=== PATIENT | male | born 1950 | race Caucasian/White ===

== ENCOUNTER → 2017-11-02 | Outpatient (CLI) | payer OTHER ==
[~2017-11-02] MED LIST: ATOR-22 PO; CZR50 PO; HYDR25TA4 PO; MULTTAB5 PO
--- NOTE | 2017-11-02 12:20 | DIAGNOSTIC IMAGING REPORT ---
MRI OF THE RIGHT SHOULDER CLINICAL HISTORY: Right shoulder injury and pain. COMPARISON STUDY: No priors. TECHNIQUE: MRI of the right shoulder was performed utilizing various T1 and T2 weighted sequences in the axial, sagittal, coronal planes. IV contrast was not administered for this examination. Note that interpretation is suboptimal without plain film correlate. FINDINGS: Rotator cuff: There is advanced tendinopathy with full-thickness rupture of the supraspinatous tendon. The tear extends at least 2 cm in length. Some of the posterior fibers remain intact. No musculotendinous retraction is identified. There is tendinopathy with mild partial-thickness tearing of the infraspinatus tendon. There is tendinopathy with full-thickness rupture of the subscapularis tendon. The teres minor tendon is intact. There is subacromial and subdeltoid bursal fluid. Productive degenerative changes seen at the acromioclavicular joint. Biceps tendon: There is tendinopathy of the long head of the biceps tendon. There has likely been full-thickness rupture of the biceps tendon which is not located within the bicipital groove. Labrum: There is circumferential tearing/maceration of the glenoid labrum. Shoulder joint: There is a large joint effusion. There is thinning of the articular cartilage overlying the glenoid. There is no MRI evidence of fracture. Musculature and soft tissues: There is mild atrophy and edema involving the subscapularis muscle. The remaining musculature appears normal. IMPRESSION: 1. There is tendinopathy with a large full-thickness tear of the supraspinatus tendon. Some of the posterior fibers remain intact and there is no musculotendinous retraction. 2. There is full-thickness rupture and retraction of the subscapularis tendon. 3. There is tendinopathy of the long head of the biceps tendon which is likely ruptured, and is not located within the bicipital groove. 4. There is circumferential tearing/maceration of the labrum. 5. Joint effusion. 6. Additional findings as above. Electronically signed by: Jack Ryan M.D. 11/02/2017 12:18 PM Dictated Date/Time: 11/02/2017 12:12 PM
== END | disposition home or self-care (01) ==
LOC: C.MRI 10:19
PROVIDERS: ATTEND Family Medicine
DX: S46.911A Strain of unspecified muscle, fascia and tendon at shoulder and upper arm level, right arm, initial encounter (principal); X58.XXXA Exposure to other specified factors, initial encounter

== ENCOUNTER 2022-12-11 14:50 | Inpatient (IN) ==
--- NOTE | 2022-12-11 15:39 | Emergency Department Note ---
History of Present Illness General Chief complaint: Referred by Doctor Stated complaint: AFIB Time Seen by Provider: 12/11/22 15:22 Source: patient, RN notes reviewed, old records reviewed (I have reviewed the notes from the clinic visit at [facility] today) and police Mode of arrival: ambulatory Limitations: no limitations History of Present Illness This patient 72-year-old male who comes in after being sent over primary care doctor after being found in a rapid A-fib with RVR. He does not have a diagnosis of this prior he says. He was at a doctor's office today to get a skin cancer removed and he notes his blood pressure was high and I sent him to the primary who did an EKG and found rapid A-fib. The patient says it feels his heart beating fast a little bit but he is mostly just feeling tired and short of breath. He is not sure when it started but thinks it started 2 or 3 days ago at least. Denies lightheadedness or dizziness. No syncope no cardiac disease disease history he is on no blood thinners. No focal numbness or weakness he does take metoprolol 25 milligrams once a day. No headache no trauma or weakness. He does drink about 5 or 6 drinks an evening but does not have any shakiness or withdrawal and symptoms he tells me Home Medications Medication Instructions Recorded Confirmed Type aspirin 81 mg tablet,delayed 81 mg PO [facility] 04/05/19 12/11/22 History release atorvastatin 20 mg tablet 20 mg PO [facility] 04/05/19 12/11/22 History hydrochlorothiazide 25 mg tablet 25 mg PO [facility] 04/05/19 12/11/22 History losartan 50 mg tablet 50 mg PO [facility] 04/05/19 12/11/22 History metformin 500 mg tablet,extended 1,000 mg PO M 04/05/19 12/11/22 History release 24 hr [id number]-[id number] 1 tab PO [facility] 04/05/19 12/11/22 History tablet (Multivitamin 50 Plus tablet) amoxicillin 500 mg capsule 2,000 mg PO DIRECTED PRN PRIOR 12/11/22 12/11/22 History TO PROCEDURES metoprolol succinate 25 mg 25 mg PO BID 12/11/22 12/11/22 History tablet,extended release 24 hr Allergies Allergy/AdvReac Type Severity Reaction Status Date / Time No Known Allergies Allergy Verified 12/11/22 17:03 Past Med/Surg History Medical History (Updated 12/11/22 @ 17:19 by Makeda Bustillo PA-C) BPH (benign prostatic hyperplasia) Hearing deficit History of colon polyps Hyperlipidemia Hypertension T2DM (type 2 diabetes mellitus) Surgical History History of arthroscopy of right knee History of colonoscopy History of esophagogastroduodenoscopy (EGD) History of open reduction and internal fixation (ORIF) procedure right fibula fx--hardware removed History of oral surgery dental implants History of repair of right rotator cuff History of tonsillectomy History of tooth extraction Family History (Updated 12/11/22 @ 17:19 by Makeda Bustillo PA-C) Grandmother (Paternal) Family history of diabetes mellitus Father Coronary heart disease Other No family history of adverse response to anesthesia Social History (Updated 12/11/22 @ 17:18 by Makeda Bustillo PA-C) Smoking Status: Never smoker Second Hand Exposure: No; Do You Dip or Chew Tobacco: Yes; Hx Alcohol Use: Yes Alcohol type: hard liquor Hx Substance Use: No Preferred Language: Kinyarwanda Communication Ability: Effective Frame Straightener Required: No Beliefs That Will Affect Care: None Current Living Situation: Alone Current Living Situation Comment: Lives [place] Other Information That Helps Us Care for You: No Feels Safe at Home: Yes Safety Concerns: Feels Safe At This Time Assistive Devices: Glasses Review of Systems A total of 10 systems reviewed and were otherwise negative Physical Exam Vital Signs Vital Signs - 24 hr 12/11/22 15:02 12/11/22 15:48 12/11/22 15:25 Temperature 36.5 C Temperature Source Temporal Artery Scan Pulse Rate 153 H 156 H 174 H Pulse Rate from SpO2 Sensor 129 H Pulse Rhythm Regular Pulse Strength Normal Respiratory Rate 20 23 Respiratory Effort / Characteristics Non-Labored Spontaneous Respiratory Depth Normal Respiratory Pattern Regular Blood Pressure 153/104 H 139/101 H Blood Pressure Mean 120 Blood Pressure Position Sitting Pulse Oximetry 95 94 Oxygen Delivery Method Room Air Sepsis Recent Fever Within 48 Hours No Sepsis New/Unexplained Change in Mental Status N/A Sepsis Action Taken by Nursing No Action Required 12/11/22 15:25 12/11/22 15:30 12/11/22 15:30 Temperature Temperature Source Pulse Rate 156 H Pulse Rate from SpO2 Sensor 139 H Pulse Rhythm Pulse Strength Respiratory Rate 18 Respiratory Effort / Characteristics Respiratory Depth Respiratory Pattern Blood Pressure 130/110 H 139/101 H Blood Pressure Mean 116 113 Blood Pressure Position Pulse Oximetry 93 Oxygen Delivery Method Sepsis Recent Fever Within 48 Hours Sepsis New/Unexplained Change in Mental Status Sepsis Action Taken by Nursing 12/11/22 16:16 12/11/22 16:00 12/11/22 16:00 Temperature Temperature Source Pulse Rate 169 H 169 H Pulse Rate from SpO2 Sensor 112 H Pulse Rhythm Pulse Strength Respiratory Rate 20 Respiratory Effort / Characteristics Respiratory Depth Respiratory Pattern Blood Pressure 120/75 120/75 Blood Pressure Mean 90 Blood Pressure Position Pulse Oximetry 94 Oxygen Delivery Method Sepsis Recent Fever Within 48 Hours Sepsis New/Unexplained Change in Mental Status Sepsis Action Taken by Nursing 12/11/22 16:53 12/11/22 16:30 12/11/22 16:30 Temperature Temperature Source Pulse Rate 152 H 152 H Pulse Rate from SpO2 Sensor 135 H Pulse Rhythm Pulse Strength Respiratory Rate 20 Respiratory Effort / Characteristics Respiratory Depth Respiratory Pattern Blood Pressure 139/100 139/100 Blood Pressure Mean 113 Blood Pressure Position Pulse Oximetry 94 Oxygen Delivery Method Sepsis Recent Fever Within 48 Hours Sepsis New/Unexplained Change in Mental Status Sepsis Action Taken by Nursing General: Well developed well nourished older male who appears in no acute distress, breathing comfortably on room air. Normal speech HEENT: Normal cephalic atraumatic. Pupils are equal round and reactive to light. Extraocular movements are intact. Oropharynx is pink with moist mucous membranes. No swelling of the mouth lips or tongue. Neck: Supple with a midline trachea. No meningeal signs or stiffness, no JVD or bruits. No Stridor. Chest: Clear to auscultation bilaterally. No wheezes or rhonchi. No increased work of breathing. Heart: Irregularly irregular narrow complex tachycardia rate of about 170 consistent with rapid A-fib but without murmurs or gallops. Abdomen: Soft nontender, nondistended without rebound guarding or rigidity. Extremities: No cyanosis clubbing or edema. No calf tenderness or assymetry Spine/Back. Non tender to palpation. No CVA tenderness Skin: Good turgor without rashes. Neurologic exam: Cranial nerves two through 12 are intact. Motor and sensation are intact and symmetrical throughout. Course Administered Medications Diltiazem HCl 125 mg/ Dextrose 125 mls @ 5 mls/hr IV .Q24H [facility]; Protocol Stop: 01/10/23 17:29 Last Admin: 12/11/22 17:35 Dose: 5 mg/hr, 5 mls/hr Documented By: OLE Co-signed By: [id number] Discontinued Medications Diltiazem HCl (Diltiazem Hcl 5 Mg/Ml 5 Ml Vial) 20 mg IV NOW STA Stop: 12/11/22 17:21 Last Admin: 12/11/22 17:34 Dose: 20 mg Documented By: OLE Co-signed By: [id number] Sodium Chloride (Nss 1000ml) 500 mls @ 999 mls/hr IV .Q31M ONE Stop: 12/11/22 16:35 Last Infusion: 12/11/22 18:49 Dose: 0 mls/hr Documented By: Admin: 12/11/22 16:15 Dose: 999 mls/hr Documented By: [id number] Magnesium Sulfate/Dextrose (Magnesium Sulfate / D5w) 1 gm in 100 mls @ 100 mls/hr IV NOW STA Stop: 12/11/22 17:41 Last Infusion: 12/11/22 18:49 Dose: 0 mls/hr Documented By: Admin: 12/11/22 16:54 Dose: 100 mls/hr Documented By: [id number] Multivitamins 10 ml/ Thiamine HCl 100 mg/ Folic Acid 1 mg/Sodium Chloride 1,011.2 mls @ 1,011.2 mls/hr IV .Q1H ONE Stop: 12/11/22 17:47 Last Admin: 12/11/22 18:16 Dose: 1,011.2 mls/hr Documented By: [id number] Metoprolol Tartrate (Metoprolol Tartrate 1 Mg/Ml Vial) 5 mg IV NOW STA Stop: 12/11/22 15:41 Last Admin: 12/11/22 15:48 Dose: 5 mg Documented By: [id number] Metoprolol Tartrate (Metoprolol Tartrate 1 Mg/Ml Vial) 5 mg IV NOW STA Stop: 12/11/22 16:06 Last Admin: 12/11/22 16:16 Dose: 5 mg Documented By: [id number] Metoprolol Tartrate (Metoprolol Tartrate 1 Mg/Ml Vial) 5 mg IV NOW STA Stop: 12/11/22 16:49 Last Admin: 12/11/22 16:53 Dose: 5 mg Documented By: [id number] Potassium Chloride (Potassium Chloride Crtab 20 Meq Tabcr) 20 meq PO NOW STA Stop: 12/11/22 17:12 Last Admin: 12/11/22 18:16 Dose: 20 meq Documented By: [id number] Critical Care Time Critical Care Time: Yes Total Critical Care Time: 45 Due to the patient's tachycardia, need for multiple IV medicate cardiac medications, reassessment, review of chart and consultation with the hospitalist, I have personally spent greater than 45 minutes of critical care time in the direct management of this patient. This includes bedside care, interpretation of diagnostic studies, and testing, discussion with consultants, patient, and family members, and other required patient management activities. This 45 minutes is in excess of all separately billable procedures. Medical Decision Making Differential Diagnosis Rapid A-fib, electrolyte or metabolic abnormality, acute coronary syndrome, thyroid disease, PE ,infection, arrhythmia Medical Records Attestation: I reviewed the patient's medical records. Home Medications Current Medication List: was personally reviewed by me Laboratory Data Attestation: I reviewed the patient's lab results. 12/11/22 15:40 12/11/22 15:40 Lab Results 12/11/22 12/11/22 12/11/22 Range/Units 15:40 15:40 15:40 WBC 9.05 (4.8-10.8) K/ul RBC 4.73 (4.70-6.10) M/uL Hgb 15.4 (14.0-18.0) g/dl Hct 44.0 (42.0-52.0) % MCV 93.0 (80.0-100.0) fL MCH 32.6 (25.0-34.0) pg MCHC 35.0 (32.0-36.0) g/dL RDW Std Deviation 41.1 (36.4-46.3) fL RDW Coeff of Cindy 11.9 (11.5-14.5) % Plt Count 194 (130-400) K/uL MPV 10.9 (9.4-12.4) fL Immature Gran % (Auto) 0.4 % Neut % (Auto) 66.1 % Lymph % (Auto) 23.2 % Noble % (Auto) 9.5 % Eos % (Auto) 0.4 % Baso % (Auto) 0.4 % Neut # (Auto) 5.97 (1.40-6.50) K/uL Lymph # (Auto) 2.10 (1.2-3.4) K/uL Noble # (Auto) 0.86 H (0.11-0.59) K/uL Eos # (Auto) 0.04 (0-0.50) K/uL Baso # (Auto) 0.04 (0-0.2) K/uL Immature Gran # (Auto) 0.04 (0.01-0.20) K/uL PT 12.2 H (9.0-12.0) Seconds INR 1.2 H (0.9-1.1) APTT 29.9 (21.0-31.0) Seconds PTT Ratio 1.1 D-Dimer 440 (0-500) ug/L FEU Sodium 139 (136-145) mmol/L Potassium 3.9 (3.5-5.1) mmol/L Chloride 105 (98-107) mmol/L Carbon Dioxide 24 (21-32) mmol/L Anion Gap 10 (3-11) BUN 13 (6-23) mg/dl Creatinine 0.93 (0.6-1.4) mg/dl Est Cr Clr Drug Dosing 87.9 ml/min Est GFR ( Amer) 96.1 ml/min Est GFR (Non-Af Amer) 82.9 ml/min BUN/Creatinine Ratio 14.0 (10-20) Glucose 119 H (70-99(Fasting)) mg/dl Calcium 9.7 (8.5-10.1) mg/dl Magnesium 1.7 (1.7-2.4) mg/dl Total Bilirubin 1.4 H (0.2-1.0) mg/dl AST 29 (13-39) U/L ALT 31 (7-52) U/L Alkaline Phosphatase 50 (34-104) U/L Troponin I High Sens 17.9 (0-20) pg/ml Total Protein 7.1 (6.0-8.3) gm/dl Albumin 4.1 (3.4-5.0) gm/dl Globulin 3.0 (2.5-4.0) gm/dl Albumin/Globulin Ratio 1.4 (0.9-2) Lipase 30 (11-82) U/L TSH (0.300-4.500) uIu/ml SARS-CoV-2, RNA, NAAT (NEGATIVE) 12/11/22 12/11/22 Range/Units 15:40 15:40 WBC (4.8-10.8) K/ul RBC (4.70-6.10) M/uL Hgb (14.0-18.0) g/dl Hct (42.0-52.0) % MCV (80.0-100.0) fL MCH (25.0-34.0) pg MCHC (32.0-36.0) g/dL RDW Std Deviation (36.4-46.3) fL RDW Coeff of Cindy (11.5-14.5) % Plt Count (130-400) K/uL MPV (9.4-12.4) fL Immature Gran % (Auto) % Neut % (Auto) % Lymph % (Auto) % Noble % (Auto) % Eos % (Auto) % Baso % (Auto) % Neut # (Auto) (1.40-6.50) K/uL Lymph # (Auto) (1.2-3.4) K/uL Noble # (Auto) (0.11-0.59) K/uL Eos # (Auto) (0-0.50) K/uL Baso # (Auto) (0-0.2) K/uL Immature Gran # (Auto) (0.01-0.20) K/uL PT (9.0-12.0) Seconds INR (0.9-1.1) APTT (21.0-31.0) Seconds PTT Ratio D-Dimer (0-500) ug/L FEU Sodium (136-145) mmol/L Potassium (3.5-5.1) mmol/L Chloride (98-107) mmol/L Carbon Dioxide (21-32) mmol/L Anion Gap (3-11) BUN (6-23) mg/dl Creatinine (0.6-1.4) mg/dl Est Cr Clr Drug Dosing ml/min Est GFR ( Amer) ml/min Est GFR (Non-Af Amer) ml/min BUN/Creatinine Ratio (10-20) Glucose (70-99(Fasting)) mg/dl Calcium (8.5-10.1) mg/dl Magnesium (1.7-2.4) mg/dl Total Bilirubin (0.2-1.0) mg/dl AST (13-39) U/L ALT (7-52) U/L Alkaline Phosphatase (34-104) U/L Troponin I High Sens (0-20) pg/ml Total Protein (6.0-8.3) gm/dl Albumin (3.4-5.0) gm/dl Globulin (2.5-4.0) gm/dl Albumin/Globulin Ratio (0.9-2) Lipase (11-82) U/L TSH 1.813 (0.300-4.500) uIu/ml SARS-CoV-2, RNA, NAAT NEGATIVE (NEGATIVE) Imaging Data Attestation: I personally reviewed and interpreted this imaging study as follows: My Impression: Chest x-rayno acute infiltrate, failure, pneumothorax seen Radiologist's Impression: Chest X-Ray 12/11/22 15:33 XR chest 1V portable HISTORY: 72 years-old Male Chest pain, nonspecific acute chest pain COMPARISON: Chest radiograph 03/26/2015 TECHNIQUE: AP view of the chest FINDINGS: Cardiac silhouette is enlarged. Atherosclerosis of the aorta. No pneumothorax, large pleural effusion or overt pulmonary edema. Bones appear grossly intact. Mild right hemidiaphragmatic elevation. Bones appear grossly intact. IMPRESSION: No acute process. ACT 112: Negative or not required by law. The above report was generated using voice recognition software. It may contain grammatical, syntax or spelling errors. Electronically signed by: Gera Louie M.D. 12/11/2022 5:10 PM ECG Data Attestation: I personally reviewed and interpreted this ECG as follows: Indication: + palpitations and + SOB/dyspnea Rate (beats per minute): 165 Rhythm: + atrial fibrillation ECG Intervals/blocks: + Normal QRS, + Normal QT and + Normal NE ECG Earth: + Normal ECG ST segments: + Normal ST segments ECG Findings: no PACs or no PVCs Comparison ECG Date: no prior available MDM Narrative This patient comes in as described above he was placed on a carpenters helper in r oom A9. He was noted to be in rapid A-fib. Is unclear how long he has been in this as his main complaint is shortness of breath and weakness, he estimates 2 or 3 days although he says he normally feels a little short of breath when he is walking around the house. No chest pain. He does have a history of drinking alcohol heavily. IV access was established and blood work was obtained. I reviewed the records from the office. He does have a history of having a work- up for palpitations in 2020 which included an echo and ZIO which were unremarkable no previous history of A-fib. He was given metoprolol 5 mg x 15 or so minutes apart with this his heart rate was starting to trend down but was still elevated. He was also given magnesium 1 g IV as his magnesium was 1.7. He was also given a banana bag IV given his alcohol history however I do not think is acutely withdrawn. Despite the metoprolol his heart rate is still elevated. I did consult the [facility] hospitalist, and discussed patient and the case with them. They came down and saw the patient in the ED and are going to start him also on Cardizem IV and admit him for further cardiac work-up. Continuous cardiac monitoring: Orders placed in EMR for continuous cardiac monitoring. Upon my interpretation, the patient was noted to be in rapid A-fib with a rate of 170 Impression & Plan Atrial fibrillation with RVR, SOB (shortness of breath), Alcohol abuse, Lab te st negative for COVID-19 virus Discharge Plan Visit Data Chief Complaint: Referred by Doctor Stated Complaint: AFIB ED Provider: Romeo Kimble Discharge Problem: Atrial fibrillation with RVR, SOB (shortness of breath), Alcohol abuse, Lab test negative for COVID-19 virus Patient Disposition: Admitted As Inpatient Discharge Instructions Interventions: ED Discharge Assessment Last Done: 12/11/22 18:46
[2022-12-11] MEDS ORDERED: METOPROLOL TARTRATE 1 MG/ML VIAL IV STA ×3 (15:40→16:48)
[2022-12-11 15:59] LABS: Basophils # (auto) 0.04 K/uL (0-0.2); Basophils % (auto) 0.4 %; Eosinophils # (auto) 0.04 K/uL (0-0.50); Eosinophils % (auto) 0.4 %; Hemoglobin 15.4 g/dl (14.0-18.0); Immature Granulocytes # (auto) 0.04 K/uL (0.01-0.20); Immature Granulocytes % (auto) 0.4 %; Lymphocytes % (auto) 23.2 %; Mean Corpuscular Hemoglobin 32.6 pg (25.0-34.0); Mean Platelet Volume 10.9 fL (9.4-12.4); Monocytes # (auto) 0.86 K/uL (0.11-0.59); Monocytes % (auto) 9.5 %; Neutrophils # (auto) 5.97 K/uL (1.40-6.50); Neutrophils % (auto) 66.1 %; Platelet Count 194 K/uL (130-400); RDW Coefficient of Variation 11.9 % (11.5-14.5); RDW Standard Deviation 41.1 fL (36.4-46.3); Red Blood Count 4.73 M/uL (4.70-6.10); White Blood Count 9.05 K/ul (4.8-10.8)
[2022-12-11] MEDS ORDERED: SODIUM CHLORIDE 0.9% 1000ML 500 ML IV ONE (16:05)
[2022-12-11 16:10] LABS: D Dimer 440 ug/L FEU (0-500); INR 1.2 (0.9-1.1); Partial Thromboplastin Ratio 1.1; Partial Thromboplastin Time 29.9 Seconds (21.0-31.0); Prothrombin Time 12.2 Seconds (9.0-12.0)
[2022-12-11 16:20] LABS: Albumin Globulin Ratio 1.4 (0.9-2); Albumin Level 4.1 gm/dl (3.4-5.0); Bilirubin,Total 1.4 mg/dl (0.2-1.0); Calcium 9.7 mg/dl (8.5-10.1); Creatinine Clr Calc Pharmacy 87.9 ml/min; Est GFR (African American) 96.1 ml/min; Est GFR (Non-African American) 82.9 ml/min; Magnesium 1.7 mg/dl (1.7-2.4); Potassium 3.9 mmol/L (3.5-5.1); Total Protein 7.1 gm/dl (6.0-8.3)
--- NOTE | 2022-12-11 16:24 | Electrocardiogram Report ---
Test Reason : Blood Pressure : / mmHG Vent. Rate : 165 BPM Atrial Rate : 340 BPM P-R Int : 000 ms QRS Dur : 076 ms QT Int : 274 ms P-R-T Axes : 000 -13 038 degrees QTc Int : 453 ms Atrial fibrillation with rapid ventricular response Abnormal ECG No previous ECGs available Confirmed by Keven Welch ([id number]) on 12/11/2022 4:24:14 PM Referred By: REFERRED SELF Confirmed By:Keven Welch
[2022-12-11 16:25] LABS: Troponin I High Sensitivity 17.9 pg/ml (0-20)
[2022-12-11] MEDS ORDERED: MAGNESIUM SULFATE / D5W 1 GM/100 ML BAG IV STA (16:42)
[2022-12-11] MEDS ORDERED: MULTI-VITAMIN INFUSION 10 ML, THIAMINE HCL 100 MG, FOLIC ACID 1 MG in SODIUM CHLORIDE 0... IV ONE (16:48)
[2022-12-11] MEDS ORDERED: POTASSIUM CHLORIDE CRTAB 20 MEQ TABCR PO STA (17:11)
[2022-12-11] MEDS ORDERED: STAT IV Infusion **Titration per Protocol STA (17:13)
--- NOTE | 2022-12-11 17:13 | History & Physical Report ---
Date of Service December 11, 2022 Assessment & Plan (1) Atrial fibrillation with RVR: (2) SOB (shortness of breath): (3) Hypertension: (4) T2DM (type 2 diabetes mellitus): (5) Hypercholesteremia: (6) Alcohol abuse: Plan This is a 72 yr old M who has significant PMH of HTN, HLD, Sinus tachy, T2DM, alcohol abuse who presents to ED at referral of PCP due to afib with RVR and SOB. Pt complains of feeling SOB for last 2-3 days. SOB New onset Afib with RVR pt received 3 - 5mg IV lopressor in ED w/o improvement will start Diltiazem bolus and gtt Lovenox 1mg/kg bid for anticoagulation- [id number] 3 (age, HTN, T2DM) replace mag - done in ED give 20meq KCL to achieve K of 4.0 TSH WNL pt reports heavy ETOH use w/ 6 whiskey drinks/day; also 3 caffeinated beverages daily Hx of Sinus tachycardia zio monitor in 2020 revealed sinus tachy and 6 brief episodes of svt hold metoprolol for now while on dilt gtt HTN BP stable continue HCTZ and losartan HLD continue statin T2DM a1c 11/2022 6.1 hold metformin correction novlog as needed Alcohol abuse 6 whiskey drinks daily received banana bag in ED daily thiamine, folic acid prn oral ativan for w/drawl pt reports going to rehab/detox at end of month Dvt ppx: Lovenox Dispo: PCU FULL CODE PCP: Isabell Pt was seen and examined in collaboration with Dr. Cedeno, please see addendum History of Present Illness Chief Complaint: SOB x 2-3 days. Primary Care Provider: Dima Whyte MD This is a 72 yr old M who has significant PMH of HTN, HLD, Sinus tachycardia, T2DM, alcohol abuse who presents to ED at referral of PCP due to afib with RVR and SOB. He was seen in [facility] today for follow-up. His BP was noted to be high and therefore appointment was made with PCP. EKG revealed A. fib with heart rates in the 170s and he was referred to ED. Pt complains of feeling SOB for last 2-3 days. He further complains of palpitations. He states if feels similar to a couple years ago when he wore a monitor for a week. At that time it didn't show anything significant. He was placed on metoprolol for this. These symptoms mostly went away and never recurred. He denies any structural heart disease and no prior hx of PCI or stents. He takes a daily ASA, "because I was told to." He does complain of a cough that is nonproductive. He denies f/c/s, chest pain, uri sx, dizziness, lightheaded, n/v/d, abd pain, change in bowel or urinary habits. He does drink alcohol approximately 6 drinks a day. He drinks 6 whiskey drinks in the evening. He is planning to seek Detox treatment at end of month. He also has 3 cups of coffee a day. He is retired from working in the [employer] He has a positive FH of CAD with father who passed at 48 due to massive ME. Allergies Allergy/AdvReac Type Severity Reaction Status Date / Time No Known Allergies Allergy Verified 12/11/22 17:03 Home Medications Medication Instructions Recorded Confirmed Type aspirin 81 mg tablet,delayed 81 mg PO [facility] 04/05/19 12/11/22 History release atorvastatin 20 mg tablet 20 mg PO [facility] 04/05/19 12/11/22 History hydrochlorothiazide 25 mg tablet 25 mg PO [facility] 04/05/19 12/11/22 History losartan 50 mg tablet 50 mg PO [facility] 04/05/19 12/11/22 History metformin 500 mg tablet,extended 1,000 mg PO [facility] 04/05/19 12/11/22 History release 24 hr [id number] 1 tab PO [facility] 04/05/19 12/11/22 History tablet (Multivitamin 50 Plus tablet) amoxicillin 500 mg capsule 2,000 mg PO DIRECTED PRN PRIOR 12/11/22 12/11/22 History TO PROCEDURES metoprolol succinate 25 mg 25 mg PO BID 12/11/22 12/11/22 History tablet,extended release 24 hr Past Med/Surg History Medical History (Updated 12/11/22 @ 17:19 by Makeda Bustillo PA-C) BPH (benign prostatic hyperplasia) Hearing deficit History of colon polyps Hyperlipidemia Hypertension T2DM (type 2 diabetes mellitus) Surgical History History of arthroscopy of right knee History of colonoscopy History of esophagogastroduodenoscopy (EGD) History of open reduction and internal fixation (ORIF) procedure right fibula fx--hardware removed History of oral surgery dental implants History of repair of right rotator cuff History of tonsillectomy History of tooth extraction Family History (Updated 12/11/22 @ 17:19 by Makeda Bustillo PA-C) Grandmother (Paternal) Family history of diabetes mellitus Father Coronary heart disease Other No family history of adverse response to anesthesia Social History (Updated 12/11/22 @ 17:18 by Makeda Bustillo PA-C) Smoking Status: Never smoker Second Hand Exposure: No; Do You Dip or Chew Tobacco: Yes; Hx Alcohol Use: Yes Alcohol type: hard liquor Hx Substance Use: No Preferred Language: Japanese Communication Ability: Effective Library Director Required: No Beliefs That Will Affect Care: None Current Living Situation: Alone Current Living Situation Comment: Lives "[place] Other Information That Helps Us Care for You: No Feels Safe at Home: Yes Safety Concerns: Feels Safe At This Time Assistive Devices: Glasses Review of Systems Review of Systems: All systems reviewed & are unremarkable except as noted in HPI & below Physical Exam Physical Exam: Please refer to Dr. Cedeno addendum for physical exam findings Results & Data Results & Data ([facility]) Vital Signs (Past 12 Hours) Vital Signs Temp Pulse Resp BP Pulse Ox O2 Del Method 12/11/22 16:30 152 H 20 94 12/11/22 16:30 139/100 12/11/22 16:53 152 H 139/100 12/11/22 16:00 169 H 20 94 12/11/22 16:00 120/75 12/11/22 16:16 169 H 120/75 12/11/22 15:30 156 H 18 93 12/11/22 15:30 139/101 H 12/11/22 15:25 130/110 H 12/11/22 15:25 174 H 23 94 12/11/22 15:48 156 H 139/101 H 12/11/22 15:02 36.5 C 153 H 20 153/104 H 95 Room Air Diagnostic Findings Chest X-Ray 12/11/22 15:33 XR chest 1V portable HISTORY: 72 years-old Male Chest pain, nonspecific acute chest pain COMPARISON: Chest radiograph 03/26/2015 TECHNIQUE: AP view of the chest FINDINGS: Cardiac silhouette is enlarged. Atherosclerosis of the aorta. No pneumothorax, large pleural effusion or overt pulmonary edema. Bones appear grossly intact. Mild right hemidiaphragmatic elevation. Bones appear grossly intact. IMPRESSION: No acute process. ACT 112: Negative or not required by law. The above report was generated using voice recognition software. It may contain grammatical, syntax or spelling errors. Electronically signed by: Gera Louie M.D. 12/11/2022 5:10 PM Medications Administered Medication List Magnesium Sulfate/Dextrose (Magnesium Sulfate / D5w) 1 gm in 100 mls @ 100 mls/hr IV NOW STA Stop: 12/11/22 17:41 Last Admin: 12/11/22 16:54 Dose: 100 mls/hr Documented By: [id number] Discontinued Medications Sodium Chloride (Nss 1000ml) 500 mls @ 999 mls/hr IV .Q31M ONE Stop: 12/11/22 16:35 Last Admin: 12/11/22 16:15 Dose: 999 mls/hr Documented By: [id number] Metoprolol Tartrate (Metoprolol Tartrate 1 Mg/Ml Vial) 5 mg IV NOW STA Stop: 12/11/22 15:41 Last Admin: 12/11/22 15:48 Dose: 5 mg Documented By: [id number] Metoprolol Tartrate (Metoprolol Tartrate 1 Mg/Ml Vial) 5 mg IV NOW STA Stop: 12/11/22 16:06 Last Admin: 12/11/22 16:16 Dose: 5 mg Documented By: [id number] Metoprolol Tartrate (Metoprolol Tartrate 1 Mg/Ml Vial) 5 mg IV NOW STA Stop: 12/11/22 16:49 Last Admin: 12/11/22 16:53 Dose: 5 mg Documented By: [id number] ECG Rate (beats per minute): 165 Rhythm: atrial fibrillation Additional Comments: RVR, QTC 453ms COVID-19 Results Results COVID-19 Adm Lab Results: RBC 4.73 M/uL (4.70-6.10) 12/11/22 WBC 9.05 K/ul (4.8-10.8) 12/11/22 Hgb 15.4 g/dl (14.0-18.0) 12/11/22 Hct 44.0 % (42.0-52.0) 12/11/22 Plt Count 194 K/uL (130-400) 12/11/22 Neutrophils (%) (Auto) 66.1 % 12/11/22 Lymphocytes (%) (Auto) 23.2 % 12/11/22 Monocytes # (Auto) 0.86 K/uL (0.11-0.59) H 12/11/22 Eosinophils # (Auto) 0.04 K/uL (0-0.50) 12/11/22 Immature Granulocyte % (Auto) 0.4 % 12/11/22 Neutrophils # (Auto) 5.97 K/uL (1.40-6.50) 12/11/22 Lymphocytes # (Auto) 2.10 K/uL (1.2-3.4) 12/11/22 Monocytes # (Auto) 0.86 K/uL (0.11-0.59) H 12/11/22 Eosinophils # (Auto) 0.04 K/uL (0-0.50) 12/11/22 Basophils # (Auto) 0.04 K/uL (0-0.2) 12/11/22 Immature Granulocyte # (Auto) 0.04 K/uL (0.01-0.20) 3 Na 139 mmol/L (136-145) 12/11/22 K 3.9 mmol/L (3.5-5.1) 12/11/22 Cl 105 mmol/L (98-107) 12/11/22 CO2 24 mmol/L (21-32) 12/11/22 Anion Gap 10 (3-11) 12/11/22 BUN 13 mg/dl (6-23) 12/11/22 Creatinine 0.93 mg/dl (0.6-1.4) 12/11/22 BUN/Creatinine Ratio 14.0 (10-20) 12/11/22 Glucose Level 119 mg/dl (70-99(Fasting)) H 12/11/22 Ca 9.7 mg/dl (8.5-10.1) 12/11/22 Total Bilirubin 1.4 mg/dl (0.2-1.0) H 12/11/22 AST/SGOT 29 U/L (13-39) 12/11/22 ALT/SGPT 31 U/L (7-52) 12/11/22 Alkaline Phosphatase 50 U/L (34-104) 12/11/22 Total Protein 7.1 gm/dl (6.0-8.3) 12/11/22 Albumin 4.1 gm/dl (3.4-5.0) 12/11/22 Globulin 3.0 gm/dl (2.5-4.0) 12/11/22 Albumin/Globulin Ratio 1.4 (0.9-2) 12/11/22 D-Dimer 440 ug/L FEU (0-500) 12/11/22 PTT 29.9 Seconds (21.0-31.0) 12/11/22 INR 1.2 (0.9-1.1) H 12/11/22 SARS-CoV-2, RNA, NAAT NEGATIVE (NEGATIVE) 12/11/22 Chest X-Ray 12/11/22 Code Status & VTE Plan Code Status FULL CODE Supervising Physician Co-Signing Physician Notes Patient seen and examined independently. Discussed with Makeda Saxena PA-C. Patient is a 72 yo male with hx of alcohol abuse, HTN, TYpe 2 DM who presents from PCP office with new onset A.fib. Ventricular rate in ED- 150-160s; received multiple dose of metoprolol. Ventricular rate persistently elevated to 1 50-1 60s. On physical examination; Constitutional: Alert oriented x3; not in any distress. Head: Normocephalic, Atraumatic Eyes: PERRL, conjunctivae normal, anicteric sclerae ENMT: external ear and nose normal, oropharynx normal Neck: trachea midline, no thyromegaly normal visual inspection Respiratory: normal respiratory effort, lungs clear to auscultation, no wheeze, rales, rhonchi. Normal insp/exp effort, no accessory muscle use Cardiovascular: Irregular, no murmur, no edema Vessels: no JVD or carotid bruit Chest: normal inspection of chest Abdomen: normal bowel sounds, soft, nontender, no hepatosplenomegaly Musculoskeletal: no cyanosis or clubbing, extremities motor strength 5/5 Skin: no rashes, warm and dry normal turgor Neurologic: PERRL, EOMI, accommodation nl, no face palsy, no dysarthria CN's II- XI intact bilaterally and moves all extremities Psychiatric: A+Ox3, euthymic affect Lymphatic: no cervical or axillary lymphadenopathy Assessment/plan: New onset atrial fibrillation with RVR: --Patient reports symptoms of shortness of breath and palpitation for 2 days. History of hypertension, type 2 diabetes mellitus, alcohol abuse Zio patch in 2020 showed sinus rhythm with occasional SVT Echo in January 07 121 shows EF of 55% Plan; Cardizem bolus of 20 mg given; ventricular rate improved to 90s. Will place on Cardizem drip to maintain ventricular rate less than 110. Lovenox for anticoagulation. Long-term anticoagulation needs to be discussed given patient's history of alcohol abuse. Cardiology consult Echocardiogram Monitor on telemetry.
[2022-12-11] MEDS ORDERED: dilTIAZem HCl 5 MG/ML 5 ML VIAL IV STA (17:20)
[2022-12-11] MEDS: dilTIAZem HCL 125 MG in DEXTROSE 5% 100 ML IV SCH (17:35)
[2022-12-11] MEDS ORDERED: ENOXAPARIN 1 MG/KG SQ SCH (17:45)
[2022-12-11] MEDS ORDERED: POLYETHYLENE (MIRALAX) 17 GM PACK PO PRN (18:46)
[2022-12-11] MEDS ORDERED: GLUCAGON FOR INJ 1 MG VIAL SQ PRN (18:46)
[2022-12-11] MEDS ORDERED: GLUCOSE 10 TAB/TUBE PO PRN (18:46)
[2022-12-11] MEDS ORDERED: ACETAMINOPHEN 325 MG TAB PO PRN (18:46)
[2022-12-11] MEDS ORDERED: CARBOHYDRATES FOR HYPOGLYCEMIA PO PRN (18:46)
[2022-12-11] MEDS ORDERED: ONDANSETRON INJ 2 MG/ML 2 ML VIAL IV PRN (18:46)
[2022-12-11] MEDS ORDERED: GLUCOSE 40% GEL 15 GM TUBE PO PRN (18:46)
[2022-12-11] MEDS ORDERED: LORazepam 1 MG TAB PO PRN (18:46)
[2022-12-11] MEDS ORDERED: DEXTROSE 50% 50 ML SYRINGE IV PRN (18:46)
[2022-12-11] MEDS ORDERED: ALUMINUM/MAGNESIUM SUSP 30 ML UDC PO PRN (18:46)
[2022-12-11] MEDS ORDERED: MAGNESIUM HYDROXIDE SUSP 30 ML UDC PO PRN (18:46)
[2022-12-11] MEDS: INSULIN ASPART PER UNIT SC SCH (20:58)
[2022-12-11] MEDS: ENOXAPARIN 100 MG/1ML SYR SQ SCH (21:08)
[2022-12-12] MEDS: ENOXAPARIN 100 MG/1ML SYR SQ SCH (05:50)
[2022-12-12 06:22] LABS: BUN Creatinine Ratio 12.6 (10-20); Calcium 9.2 mg/dl (8.5-10.1); Creatinine Clr Calc Pharmacy 86.1 ml/min; Est GFR (African American) 93.6 ml/min; Est GFR (Non-African American) 80.8 ml/min; Hematocrit (blood only) 41.7 % (42.0-52.0); Hemoglobin 14.4 g/dl (14.0-18.0); Magnesium 1.9 mg/dl (1.7-2.4); Mean Corpuscular Hemoglobin 32.7 pg (25.0-34.0); Mean Corpuscular Hgb Conc 34.5 g/dL (32.0-36.0); Mean Corpuscular Volume 94.6 fL (80.0-100.0); Mean Platelet Volume 11.2 fL (9.4-12.4); Platelet Count 182 K/uL (130-400); Potassium 3.8 mmol/L (3.5-5.1); RDW Standard Deviation 42.1 fL (36.4-46.3); Red Blood Count 4.41 M/uL (4.70-6.10); White Blood Count 9.34 K/ul (4.8-10.8)
[2022-12-12] MEDS: dilTIAZem HCL 125 MG in DEXTROSE 5% 100 ML IV SCH ×2 (06:33→12:01)
[2022-12-12] MEDS: INSULIN ASPART PER UNIT SC SCH ×4 (07:53→20:59)
[2022-12-12] MEDS: ATORVASTATIN 20 MG TAB PO SCH (08:42)
[2022-12-12] MEDS: CEROVITE ADV FORMULA TAB PO SCH (08:42)
[2022-12-12] MEDS: THIAMINE HCL 100 MG TAB PO SCH (08:42)
[2022-12-12] MEDS: hydroCHLOROthiazide 25 MG TAB PO SCH (08:43)
[2022-12-12] MEDS: LOSARTAN POTASSIUM 50 MG TAB PO SCH (08:43)
[2022-12-12] MEDS: FOLIC ACID 1 MG TAB PO SCH (08:43)
[2022-12-12] MEDS: METOPROLOL TARTRATE 25 MG TAB PO SCH ×3 (09:24→19:36)
--- NOTE | 2022-12-12 09:57 | Cardiology Consultation ---
Date of Consultation December 12, 2022 Assessment & Plan (1) Paroxysmal atrial fibrillation: (2) Alcohol abuse: (3) Hypertension: (4) Hypercholesteremia: Plan 72-year-old patient presents to the ER with shortness of breath x72 hours. ECG confirms atrial fibrillation with rapid ventricular response. [id number] = 2 secondary to age and hypertension. Admits to excessive alcohol intake, 6 whiskey drinks per day and occasional falls. Planning inpatient detox at the end of the month. Stroke risk associated with atrial fibrillation discussed with patient at bedside. Currently, he is not a strong candidate for long-term anticoagulation due to his ongoing excessive alcohol intake and occasional falls. Recommend oral metoprolol 25 mg 3 times daily. Wean intravenous diltiazem as tolerated. This was discussed with nursing staff who will begin to cut back diltiazem after first dose of metoprolol. Review complete 2D transthoracic echocardiogram when available. Thank you for allow me to participate in the care of your patient. History of Present Illness Reason for Consultation: Atrial fibrillation with rapid ventricular response. Requesting Physician: Dr. Cedeno Attending Physician: Ricardo Cedeno MD History of Present Illness 72-year-old patient presents to the emergency department with shortness of breath x3 days. Evaluated by primary care who referred patient to the ER due to atrial fibrillation with rapid ventricular response. Treated with IV Lopressor and diltiazem in the ER. Ultimately, and intravenous diltiazem infusion was initiated. Fair control currently at 10 mg/h. He has not received any oral beta-jose martin since admission. Anticoagulated with subcutaneous Lovenox. Patient admits to 6 whiskey drinks per day. Admits to rare falls. Also states "I live off the grid". Denies signs/symptoms of GI/ blood loss. Symptoms improved since admission. Asymptomatic at rest, however, notes mild shortness of breath this morning when ambulating to the restroom. Denies history of coronary disease, congestive heart failure, CVA or rheumatic fever as a child. Preliminary review of bedside 2D transthoracic echocardiogram demonstrates left ventricular ejection fraction of 50-54%. No significant valvular pathology. Allergies Allergy/AdvReac Type Severity Reaction Status Date / Time No Known Allergies Allergy Verified 12/11/22 17:03 Home Medications Medication Instructions Recorded Confirmed Type aspirin 81 mg tablet,delayed 81 mg PO QAM 04/05/19 12/11/22 History release atorvastatin 20 mg tablet 20 mg PO QAM 04/05/19 12/11/22 History hydrochlorothiazide 25 mg tablet 25 mg PO QAM 04/05/19 12/11/22 History losartan 50 mg tablet 50 mg PO QAM 04/05/19 12/11/22 History metformin 500 mg tablet,extended 1,000 mg PO QAM 04/05/19 12/11/22 History release 24 hr [id number] 1 tab PO QAM 04/05/19 12/11/22 History tablet (Multivitamin 50 Plus tablet) amoxicillin 500 mg capsule 2,000 mg PO DIRECTED PRN PRIOR 12/11/22 12/11/22 History TO PROCEDURES metoprolol succinate 25 mg 25 mg PO BID 12/11/22 12/11/22 History tablet,extended release 24 hr Patient History Medical History BPH (benign prostatic hyperplasia) Hearing deficit History of colon polyps Hyperlipidemia Hypertension T2DM (type 2 diabetes mellitus) Surgical History History of arthroscopy of right knee History of colonoscopy History of esophagogastroduodenoscopy (EGD) History of open reduction and internal fixation (ORIF) procedure right fibula fx--hardware removed History of oral surgery dental implants History of repair of right rotator cuff History of tonsillectomy History of tooth extraction Family History Grandmother (Paternal) Family history of diabetes mellitus Father Coronary heart disease Other No family history of adverse response to anesthesia Social History Smoking Status: Never smoker Second Hand Exposure: No; Do You Dip or Chew Tobacco: Yes; Hx Alcohol Use: Yes Alcohol type: hard liquor Hx Substance Use: No Preferred Language: Haitian Communication Ability: Effective Fire Hydrant Operator Required: No Beliefs That Will Affect Care: None Current Living Situation: Alone Current Living Situation Comment: Lives "[place]." Other Information That Helps Us Care for You: No Feels Safe at Home: Yes Safety Concerns: Feels Safe At This Time Assistive Devices: Glasses Review of Systems Review of Systems: All systems reviewed & are unremarkable except as noted in Subjective Physical Exam Constitutional: well nourished; no acute distress Respiratory: normal respiratory effort; no respiratory distress, no labored breathing and no retractions Auscultation: no crackles, no rales, no rhonchi and no wheezes Cardiovascular: Rate/Rhythm: + irregularly irregular Heart Sounds: normal S1 and normal S2; no murmur Vessels: no JVD and no carotid bruit Extremities: no edema Gastrointestinal (Abdomen): Inspection/Auscultation: abdomen normal to i nspection and normal bowel sounds; abdomen not distended Percussion/Palpation: abdomen soft; abdomen nontender, no guarding and abdomen not rigid Neurologic: CN's II-XI intact bilaterally and moves all extremities; no focal motor deficits Motor/Sensory: no tremor Results & Data ([facility]) Vital Signs (Past 12 Hours) Vital Signs Temp Pulse Pulse Resp BP BP Pulse Ox 12/12/22 08:48 12/12/22 07:54 103 H 12/12/22 07:53 36.7 C 107 H 18 120/68 93 12/12/22 03:08 36.6 C 83 16 121/78 94 12/12/22 00:00 12/11/22 23:37 36.5 C 100 H 16 151/86 H 93 12/11/22 22:31 102 H Pulse Ox O2 Del Method O2 Del Method 12/12/22 08:48 Room Air 12/12/22 07:54 12/12/22 07:53 Room Air 12/12/22 03:08 Room Air 12/12/22 00:00 93 Room Air 12/11/22 23:37 Room Air 12/11/22 22:31 Laboratory Results Laboratory Results - last 24 hr 12/11/22 12/11/22 12/11/22 15:40 15:40 15:40 WBC 9.05 RBC 4.73 Hgb 15.4 Hct 44.0 MCV 93.0 MCH 32.6 MCHC 35.0 RDW Std Deviation 41.1 RDW Coeff of Cindy 11.9 Plt Count 194 MPV 10.9 Immature Gran % (Auto) 0.4 Neut % (Auto) 66.1 Lymph % (Auto) 23.2 [place] % (Auto) 9.5 Eos % (Auto) 0.4 Baso % (Auto) 0.4 Neut # (Auto) 5.97 Lymph # (Auto) 2.10 [place] # (Auto) 0.86 H Eos # (Auto) 0.04 Baso # (Auto) 0.04 Immature Gran # (Auto) 0.04 PT 12.2 H INR 1.2 H APTT 29.9 PTT Ratio 1.1 D-Dimer 440 Sodium 139 Potassium 3.9 Chloride 105 Carbon Dioxide 24 Anion Gap 10 BUN 13 Creatinine 0.93 Est Cr Clr Drug Dosing 87.9 Est GFR ( Amer) 96.1 Est GFR (Non-Af Amer) 82.9 BUN/Creatinine Ratio 14.0 Glucose 119 H POC Glucose Calcium 9.7 Magnesium 1.7 Total Bilirubin 1.4 H AST 29 ALT 31 Alkaline Phosphatase 50 Troponin I High Sens 17.9 Total Protein 7.1 Albumin 4.1 Globulin 3.0 Albumin/Globulin Ratio 1.4 Lipase 30 TSH SARS-CoV-2, RNA, NAAT 12/11/22 12/11/22 12/11/22 15:40 15:40 20:28 WBC RBC Hgb Hct MCV MCH MCHC RDW Std Deviation RDW Coeff of Cindy Plt Count MPV Immature Gran % (Auto) Neut % (Auto) Lymph % (Auto) [place] % (Auto) Eos % (Auto) Baso % (Auto) Neut # (Auto) Lymph # (Auto) [place] # (Auto) Eos # (Auto) Baso # (Auto) Immature Gran # (Auto) PT INR APTT PTT Ratio D-Dimer Sodium Potassium Chloride Carbon Dioxide Anion Gap BUN Creatinine Est Cr Clr Drug Dosing Est GFR ( Amer) Est GFR (Non-Af Amer) BUN/Creatinine Ratio Glucose POC Glucose 136 H Calcium Magnesium Total Bilirubin AST ALT Alkaline Phosphatase Troponin I High Sens Total Protein Albumin Globulin Albumin/Globulin Ratio Lipase TSH 1.813 SARS-CoV-2, RNA, NAAT NEGATIVE 12/12/22 12/12/22 05:24 05:24 WBC 9.34 RBC 4.41 L Hgb 14.4 Hct 41.7 L MCV 94.6 MCH 32.7 MCHC 34.5 RDW Std Deviation 42.1 RDW Coeff of Cindy 12.0 Plt Count 182 MPV 11.2 Immature Gran % (Auto) Neut % (Auto) Lymph % (Auto) [place] % (Auto) Eos % (Auto) Baso % (Auto) Neut # (Auto) Lymph # (Auto) [place] # (Auto) Eos # (Auto) Baso # (Auto) Immature Gran # (Auto) PT INR APTT PTT Ratio D-Dimer Sodium 138 Potassium 3.8 Chloride 106 Carbon Dioxide 24 Anion Gap 8 BUN 12 Creatinine 0.95 Est Cr Clr Drug Dosing 86.1 Est GFR ( Amer) 93.6 Est GFR (Non-Af Amer) 80.8 BUN/Creatinine Ratio 12.6 Glucose 106 H POC Glucose Calcium 9.2 Magnesium 1.9 Total Bilirubin AST ALT Alkaline Phosphatase Troponin I High Sens Total Protein Albumin Globulin Albumin/Globulin Ratio Lipase TSH SARS-CoV-2, RNA, NAAT ECG Additional Comments: ECG: Atrial fibrillation with rapid ventricular response, PVCs versus aberrantly conducted beats, ventricular rate 108 bpm.
--- NOTE | 2022-12-12 10:37 | Hospitalist Progress Note ---
Date of Service December 12, 2022 Assessment & Plan (1) Atrial fibrillation with RVR: (2) SOB (shortness of breath): (3) Hypertension: (4) T2DM (type 2 diabetes mellitus): (5) Hypercholesteremia: (6) Alcohol abuse: Plan This is a 72 yr old M who has significant PMH of HTN, HLD, Sinus tachy, T2DM, alcohol abuse who presents to ED at referral of PCP due to afib with RVR and SOB. Pt complains of feeling SOB for last 2-3 days. SOB New onset Afib with RVR --Patient reports symptoms of shortness of breath and palpitation for 2 days prior to admission. History of hypertension, type 2 diabetes mellitus, alcohol abuse Zio patch in 2020 showed sinus rhythm with occasional SVT On presentation to the ED, his ventricular rate was in 150s to 160s. He received IV Lopressor X3 . He was started on Cardizem drip with 20 mg bolus. Ventricle rate in 100-110 on Cardizem drip of 10mg/h TSH WNL Plan; Cardiology on board; recommend that patient be started on metoprolol 25 mg 3 times daily and wean Cardizem as tolerated. Echo pending As per cardiology, patient not a strong candidate for long-term anticoagulation due to ongoing excessive alcohol use and occasional falls. Lovenox discontinued as per recommendation. HTN BP stable He takes hydrochlorothiazide, losartan and metoprolol. Continue same. HLD continue statin T2DM a1c 11/2022 6.1 hold metformin correction novlog as needed Alcohol abuse 6 whiskey drinks daily received banana bag in ED daily thiamine, folic acid prn oral ativan for w/drawl pt reports going to rehab/detox at end of month No withdrawal symptom at present. Dvt ppx: Lovenox Dispo: PCU FULL CODE PCP: Isabell Admission and Anticipated Discharge Date Admission Date: December 11, 2022 Subjective Patient seen and examined at bedside. He is sitting up on the bed eating breakfast; denies any chest pain. Reports that his palpitation has improved. Review of Systems Review of Systems: All systems reviewed & are unremarkable except as noted in Subjective Physical Exam Physical Exam: Constitutional: Alert oriented x3; not in any distress. Respiratory: normal respiratory effort, lungs clear to auscultation, no wheeze, rales, rhonchi. Normal insp/exp effort, no accessory muscle use Cardiovascular: Irregular, no murmur, no edema Vessels: no JVD or carotid bruit Chest: normal inspection of chest Abdomen: normal bowel sounds, soft, nontender, no hepatosplenomegaly Musculoskeletal: no cyanosis or clubbing, extremities motor strength 5/5 Skin: no rashes, warm and dry normal turgor Neurologic: PERRL, EOMI, accommodation nl, no face palsy, no dysarthria CN's II- XI intact bilaterally and moves all extremities Psychiatric: A+Ox3, euthymic affect Lymphatic: no cervical or axillary lymphadenopathy Results & Data Results & Data ([facility]) Vital Signs (Past 12 Hours) Vital Signs Temp Pulse Pulse Resp BP BP Pulse Ox 12/12/22 08:48 12/12/22 07:54 103 H 12/12/22 07:53 36.7 C 107 H 18 120/68 93 12/12/22 03:08 36.6 C 83 16 121/78 94 12/12/22 00:00 12/11/22 23:37 36.5 C 100 H 16 151/86 H 93 12/11/22 22:31 102 H Pulse Ox O2 Del Method O2 Del Method 12/12/22 08:48 Room Air 12/12/22 07:54 12/12/22 07:53 Room Air 12/12/22 03:08 Room Air 12/12/22 00:00 93 Room Air 12/11/22 23:37 Room Air 12/11/22 22:31 Laboratory Results Laboratory Results WBC 9.34 K/ul (4.8-10.8) 12/12/22 05:24 RBC 4.41 M/uL (4.70-6.10) L 12/12/22 05:24 Hgb 14.4 g/dl (14.0-18.0) 12/12/22 05:24 Hct 41.7 % (42.0-52.0) L 12/12/22 05:24 MCV 94.6 fL (80.0-100.0) 12/12/22 05:24 MCH 32.7 pg (25.0-34.0) 12/12/22 05:24 MCHC 34.5 g/dL (32.0-36.0) 12/12/22 05:24 RDW Std Deviation 42.1 fL (36.4-46.3) 12/12/22 05:24 RDW Coeff of Cindy 12.0 % (11.5-14.5) 12/12/22 05:24 Plt Count 182 K/uL (130-400) 12/12/22 05:24 MPV 11.2 fL (9.4-12.4) 12/12/22 05:24 Immature Gran % (Auto) 0.4 % 12/11/22 15:40 Neut % (Auto) 66.1 % 12/11/22 15:40 Lymph % (Auto) 23.2 % 12/11/22 15:40 [place] % (Auto) 9.5 % 12/11/22 15:40 Eos % (Auto) 0.4 % 12/11/22 15:40 Baso % (Auto) 0.4 % 12/11/22 15:40 Neut # (Auto) 5.97 K/uL (1.40-6.50) 12/11/22 15:40 Lymph # (Auto) 2.10 K/uL (1.2-3.4) 12/11/22 15:40 [place] # (Auto) 0.86 K/uL (0.11-0.59) H 12/11/22 15:40 Eos # (Auto) 0.04 K/uL (0-0.50) 12/11/22 15:40 Baso # (Auto) 0.04 K/uL (0-0.2) 12/11/22 15:40 Immature Gran # (Auto) 0.04 K/uL (0.01-0.20) 12/11/22 15:40 PT 12.2 Seconds (9.0-12.0) H 12/11/22 15:40 INR 1.2 (0.9-1.1) H 12/11/22 15:40 APTT 29.9 Seconds (21.0-31.0) 12/11/22 15:40 PTT Ratio 1.1 12/11/22 15:40 D-Dimer 440 ug/L FEU (0-500) 12/11/22 15:40 Sodium 138 mmol/L (136-145) 12/12/22 05:24 Potassium 3.8 mmol/L (3.5-5.1) 12/12/22 05:24 Chloride 106 mmol/L (98-107) 12/12/22 05:24 Carbon Dioxide 24 mmol/L (21-32) 12/12/22 05:24 Anion Gap 8 (3-11) 12/12/22 05:24 BUN 12 mg/dl (6-23) 12/12/22 05:24 Creatinine 0.95 mg/dl (0.6-1.4) 12/12/22 05:24 Est Cr Clr Drug Dosing 86.1 ml/min 12/12/22 05:24 Est GFR ( Amer) 93.6 ml/min 12/12/22 05:24 Est GFR (Non-Af Amer) 80.8 ml/min 12/12/22 05:24 BUN/Creatinine Ratio 12.6 (10-20) 12/12/22 05:24 Glucose 106 mg/dl (70-99(Fasting)) H 12/12/22 05:24 POC Glucose 136 mg/dl (70-99) H 12/11/22 20:28 Calcium 9.2 mg/dl (8.5-10.1) 12/12/22 05:24 Magnesium 1.9 mg/dl (1.7-2.4) 12/12/22 05:24 Total Bilirubin 1.4 mg/dl (0.2-1.0) H 12/11/22 15:40 AST 29 U/L (13-39) 12/11/22 15:40 ALT 31 U/L (7-52) 12/11/22 15:40 Alkaline Phosphatase 50 U/L (34-104) 12/11/22 15:40 Troponin I High Sens 17.9 pg/ml (0-20) 12/11/22 15:40 Total Protein 7.1 gm/dl (6.0-8.3) 12/11/22 15:40 Albumin 4.1 gm/dl (3.4-5.0) 12/11/22 15:40 Globulin 3.0 gm/dl (2.5-4.0) 12/11/22 15:40 Albumin/Globulin Ratio 1.4 (0.9-2) 12/11/22 15:40 Lipase 30 U/L (11-82) 12/11/22 15:40 TSH 1.813 uIu/ml (0.300-4.500) 12/11/22 15:40 SARS-CoV-2, RNA, NAAT NEGATIVE (NEGATIVE) 12/11/22 15:40 Impressions Chest X-Ray 12/11/22 15:33 XR chest 1V portable HISTORY: 72 years-old Male Chest pain, nonspecific acute chest pain COMPARISON: Chest radiograph 03/26/2015 TECHNIQUE: AP view of the chest FINDINGS: Cardiac silhouette is enlarged. Atherosclerosis of the aorta. No pneumothorax, large pleural effusion or overt pulmonary edema. Bones appear grossly intact. Mild right hemidiaphragmatic elevation. Bones appear grossly intact. IMPRESSION: No acute process. ACT 112: Negative or not required by law. The above report was generated using voice recognition software. It may contain grammatical, syntax or spelling errors. Electronically signed by: Gera Louie M.D. 12/11/2022 5:10 PM
--- NOTE | 2022-12-12 13:16 | Electrocardiogram Report ---
Test Reason : Blood Pressure : / mmHG Vent. Rate : 108 BPM Atrial Rate : 080 BPM P-R Int : 000 ms QRS Dur : 076 ms QT Int : 368 ms P-R-T Axes : 000 002 019 degrees QTc Int : 493 ms Atrial fibrillation with rapid ventricular response with premature ventricular or aberrantly conducte d complexes Abnormal ECG When compared with ECG of 11-DEC-2022 15:15, Vent. rate has decreased BY 57 BPM Confirmed by Keven Welch ([id number]) on 12/12/2022 1:16:27 PM Referred By: REFERRED SELF Confirmed By:Keven Welch
[2022-12-13] MEDS ORDERED: STAT IV Infusion **Titration per Protocol STA (02:57)
[2022-12-13] MEDS ORDERED: dilTIAZem HCl 5 MG/ML 5 ML VIAL IV STA ×2 (02:58→04:20)
[2022-12-13] MEDS: dilTIAZem HCL 125 MG in DEXTROSE 5% 100 ML IV SCH ×2 (03:08→20:38)
[2022-12-13 06:13] LABS: Hematocrit (blood only) 41.6 % (42.0-52.0); Hemoglobin 14.5 g/dl (14.0-18.0); Mean Corpuscular Hemoglobin 32.4 pg (25.0-34.0); Mean Corpuscular Hgb Conc 34.9 g/dL (32.0-36.0); Mean Corpuscular Volume 93.1 fL (80.0-100.0); Mean Platelet Volume 11.1 fL (9.4-12.4); Platelet Count 179 K/uL (130-400); RDW Coefficient of Variation 11.9 % (11.5-14.5); RDW Standard Deviation 40.6 fL (36.4-46.3); Red Blood Count 4.47 M/uL (4.70-6.10); White Blood Count 7.73 K/ul (4.8-10.8)
[2022-12-13 06:30] LABS: BUN Creatinine Ratio 11.4 (10-20); Calcium 9.7 mg/dl (8.5-10.1); Creatinine Clr Calc Pharmacy 93.2 ml/min; Est GFR (African American) 100.9 ml/min; Magnesium 1.8 mg/dl (1.7-2.4); Potassium 3.3 mmol/L (3.5-5.1)
[2022-12-13] MEDS ORDERED: POTASSIUM CHLORIDE CRTAB 20 MEQ TABCR PO STA ×2 (06:42→07:20)
[2022-12-13] MEDS ORDERED: MAGNESIUM SULFATE / D5W 1 GM/100 ML BAG IV ONE (06:42)
[2022-12-13 07:18] LABS: Troponin I High Sensitivity 13.1 pg/ml (0-20)
[2022-12-13] MEDS: INSULIN ASPART PER UNIT SC SCH ×4 (08:05→20:08)
[2022-12-13] MEDS: CEROVITE ADV FORMULA TAB PO SCH (09:18)
[2022-12-13] MEDS: hydroCHLOROthiazide 25 MG TAB PO SCH (09:19)
[2022-12-13] MEDS: THIAMINE HCL 100 MG TAB PO SCH (09:19)
[2022-12-13] MEDS: METOPROLOL TARTRATE 25 MG TAB PO SCH ×4 (09:19→23:36)
[2022-12-13] MEDS: ATORVASTATIN 20 MG TAB PO SCH (09:19)
[2022-12-13] MEDS: FOLIC ACID 1 MG TAB PO SCH (09:20)
[2022-12-13] MEDS: LOSARTAN POTASSIUM 50 MG TAB PO SCH (09:20)
--- NOTE | 2022-12-13 10:35 | Hospitalist Progress Note ---
Date of Service December 13, 2022 Assessment & Plan (1) Atrial fibrillation with RVR: (2) SOB (shortness of breath): (3) Hypertension: (4) T2DM (type 2 diabetes mellitus): (5) Hypercholesteremia: (6) Alcohol abuse: Plan This is a 72 yr old M who has significant PMH of HTN, HLD, Sinus tachy, T2DM, alcohol abuse who presents to ED at referral of PCP due to afib with RVR and SOB. Pt complains of feeling SOB for last 2-3 days. SOB New onset Afib with RVR --Patient reports symptoms of shortness of breath and palpitation for 2 days prior to admission. History of hypertension, type 2 diabetes mellitus, alcohol abuse Zio patch in 2020 showed sinus rhythm with occasional SVT On presentation to the ED, his ventricular rate was in 150s to 160s. He received IV Lopressor X3 . He was started on Cardizem drip with 20 mg bolus. Ventricle rate in 100-110 on Cardizem drip of 10mg/h Patient converted to SR on december 12, again converted back to A.fib around 2:40 am on December 13. - No troponin elevation Echo: EF of 50-55%. LA midly dilated. mild mitral regurgitation. Plan; Cardiology on board; recommend that patient be started on metoprolol 25 mg 3 times daily and wean Cardizem as tolerated. will appreciate further recommendation. As per cardiology, patient not a strong candidate for long-term anticoagulation due to ongoing excessive alcohol use and occasional falls. Lovenox discontinued as per recommendation. HTN BP stable He takes hydrochlorothiazide, losartan and metoprolol. Continue same. HLD continue statin T2DM a1c 11/2022 6.1 hold metformin correction novlog as needed Alcohol abuse 6 whiskey drinks daily received banana bag in ED daily thiamine, folic acid prn oral ativan for w/drawl pt reports going to rehab/detox at end of month No withdrawal symptom at present. Dvt ppx: SCDs Dispo: PCU FULL CODE PCP: Isabell Admission and Anticipated Discharge Date Admission Date: December 11, 2022 Subjective Patient seen and examined at bedside. He is comfortably sitting up on the chair. He converted back to A.fib with RVR overnight around 2:40 with ventricular rate in 140s. Denies any symptoms. Review of Systems Review of Systems: All systems reviewed & are unremarkable except as noted in Subjective Physical Exam Physical Exam: Constitutional: Alert oriented x3; not in any distress. Respiratory: normal respiratory effort, lungs clear to auscultation, no wheeze, rales, rhonchi. Normal insp/exp effort, no accessory muscle use Cardiovascular: Irregular, no murmur, no edema Vessels: no JVD or carotid bruit Chest: normal inspection of chest Abdomen: normal bowel sounds, soft, nontender, no hepatosplenomegaly Musculoskeletal: no cyanosis or clubbing, extremities motor strength 5/5 Skin: no rashes, warm and dry normal turgor Neurologic: PERRL, EOMI, accommodation nl, no face palsy, no dysarthria CN's II- XI intact bilaterally and moves all extremities Psychiatric: A+Ox3, euthymic affect Lymphatic: no cervical or axillary lymphadenopathy Results & Data Results & Data ([facility]) Vital Signs (Past 12 Hours) Vital Signs Temp Pulse Pulse Resp BP BP Pulse Ox 12/13/22 08:04 36.7 C 119 H 20 142/76 H 93 12/13/22 04:30 142 H 153/111 H 12/13/22 04:00 132 H 151/97 H 12/13/22 03:40 136 H 165/105 H 12/13/22 03:21 140 H 148/103 H 12/13/22 03:12 128 H 142/103 H 12/13/22 02:24 36.6 C 87 18 130/79 94 12/12/22 23:00 77 12/13/22 00:00 12/12/22 22:52 36.9 C 79 16 141/99 H 96 O2 Del Method O2 Del Method 12/13/22 08:04 Room Air 12/13/22 04:30 12/13/22 04:00 12/13/22 03:40 12/13/22 03:21 12/13/22 03:12 12/13/22 02:24 Room Air 12/12/22 23:00 12/13/22 00:00 Room Air 12/12/22 22:52 Room Air Laboratory Results Laboratory Results WBC 7.73 K/ul (4.8-10.8) 12/13/22 05:29 RBC 4.47 M/uL (4.70-6.10) L 12/13/22 05:29 Hgb 14.5 g/dl (14.0-18.0) 12/13/22 05:29 Hct 41.6 % (42.0-52.0) L 12/13/22 05:29 MCV 93.1 fL (80.0-100.0) 12/13/22 05:29 MCH 32.4 pg (25.0-34.0) 12/13/22 05: MCHC 34.9 g/dL (32.0-36.0) 12/13/22 05: RDW Std Deviation 40.6 fL (36.4-46.3) 12/13/22 05: RDW Coeff of Cindy 11.9 % (11.5-14.5) 12/13/22 05: Plt Count 179 K/uL (130-400) 12/13/22 05: MPV 11.1 fL (9.4-12.4) 12/13/22 05:29 Immature Gran % (Auto) 0.4 % 12/11/22 15:40 Neut % (Auto) 66.1 % 12/11/22 15:40 Lymph % (Auto) 23.2 % 12/11/22 15:40 [place] % (Auto) 9.5 % 12/11/22 15:40 Eos % (Auto) 0.4 % 12/11/22 15:40 Baso % (Auto) 0.4 % 12/11/22 15:40 Neut # (Auto) 5.97 K/uL (1.40-6.50) 12/11/22 15:40 Lymph # (Auto) 2.10 K/uL (1.2-3.4) 12/11/22 15:40 [place] # (Auto) 0.86 K/uL (0.11-0.59) H 12/11/22 15:40 Eos # (Auto) 0.04 K/uL (0-0.50) 12/11/22 15:40 Baso # (Auto) 0.04 K/uL (0-0.2) 12/11/22 15:40 Immature Gran # (Auto) 0.04 K/uL (0.01-0.20) 12/11/22 15:40 PT 12.2 Seconds (9.0-12.0) H 12/11/22 15:40 INR 1.2 (0.9-1.1) H 12/11/22 15:40 APTT 29.9 Seconds (21.0-31.0) 12/11/22 15:40 PTT Ratio 1.1 12/11/22 15:40 D-Dimer 440 ug/L FEU (0-500) 12/11/22 15:40 Sodium 136 mmol/L (136-145) 12/13/22 05:29 Potassium 3.3 mmol/L (3.5-5.1) L 12/13/22 05:29 Chloride 103 mmol/L (98-107) 12/13/22 05:29 Carbon Dioxide 24 mmol/L (21-32) 12/13/22 05:29 Anion Gap 9 (3-11) 12/13/22 05:29 BUN 10 mg/dl (6-23) 12/13/22 05:29 Creatinine 0.88 mg/dl (0.6-1.4) 12/13/22 05:29 Est Cr Clr Drug Dosing 93.2 ml/min 12/13/22 05:29 Est GFR ( Amer) 100.9 ml/min 12/13/22 05:29 Est GFR (Non-Af Amer) 87.0 ml/min 12/13/22 05:29 BUN/Creatinine Ratio 11.4 (10-20) 12/13/22 05:29 Glucose 132 mg/dl (70-99(Fasting)) H 12/13/22 05:29 POC Glucose 112 mg/dl (70-99) H 12/13/22 07:43 Calcium 9.7 mg/dl (8.5-10.1) 12/13/22 05:29 Magnesium 1.8 mg/dl (1.7-2.4) 12/13/22 05:29 Total Bilirubin 1.4 mg/dl (0.2-1.0) H 12/11/22 15:40 AST 29 U/L (13-39) 12/11/22 15:40 ALT 31 U/L (7-52) 12/11/22 15:40 Alkaline Phosphatase 50 U/L (34-104) 12/11/22 15:40 Troponin I High Sens 13.1 pg/ml (0-20) D 12/13/22 05:29 Total Protein 7.1 gm/dl (6.0-8.3) 12/11/22 15:40 Albumin 4.1 gm/dl (3.4-5.0) 12/11/22 15:40 Globulin 3.0 gm/dl (2.5-4.0) 12/11/22 15:40 Albumin/Globulin Ratio 1.4 (0.9-2) 12/11/22 15:40 Lipase 30 U/L (11-82) 12/11/22 15:40 TSH 1.813 uIu/ml (0.300-4.500) 12/11/22 15:40 SARS-CoV-2, RNA, NAAT NEGATIVE (NEGATIVE) 12/11/22 15:40 Impressions Chest X-Ray 12/11/22 15:33 XR chest 1V portable HISTORY: 72 years-old Male Chest pain, nonspecific acute chest pain COMPARISON: Chest radiograph 03/26/2015 TECHNIQUE: AP view of the chest FINDINGS: Cardiac silhouette is enlarged. Atherosclerosis of the aorta. No pneumothorax, large pleural effusion or overt pulmonary edema. Bones appear grossly intact. Mild right hemidiaphragmatic elevation. Bones appear grossly intact. IMPRESSION: No acute process. ACT 112: Negative or not required by law. The above report was generated using voice recognition software. It may contain grammatical, syntax or spelling errors. Electronically signed by: Gera Louie M.D. 12/11/2022 5:10 PM
--- NOTE | 2022-12-13 12:23 | Cardiology Progress Note ---
Date of Service December 13, 2022 Assessment & Plan (1) Paroxysmal atrial fibrillation: (2) Alcohol abuse: (3) Hypertension: (4) Hypercholesteremia: Plan 72-year-old patient presents to the ER with shortness of breath x72 hours. ECG confirms atrial fibrillation with rapid ventricular response. [id number] = 2 secondary to age and hypertension. Admits to excessive alcohol intake, 6 whiskey drinks per day and occasional falls. Planning inpatient detox at the end of the month. Stroke risk reviewed. Currently, he is not a strong candidate for long-term anticoagulation due to his ongoing excessive alcohol intake and occasional falls. Brief reversion to sinus rhythm overnight. Recommend titration of metoprolol to 25 mg every 6 hours. Wean intravenous diltiazem infusion as tolerated. Replace electrolytes as indicated. Repeat ECG in a.m. Consider addition of benzodiazepines this evening with history of excessive alcohol intake. No active signs of withdrawal currently. Admission and Anticipated Discharge Date Admission Date: December 11, 2022 Subjective Patient seen examined the bedside. Converted to sinus rhythm for a brief time overnight. Currently back in atrial fibrillation with elevated heart rate. Intravenous diltiazem resumed at 10 mg/h. Denies palpitations or chest discomfort. No orthopnea, PND, or lower extremity edema. Review of Systems Review of Systems: All systems reviewed & are unremarkable except as noted in Subjective Physical Exam Constitutional: well nourished; no acute distress Respiratory: normal respiratory effort; no respiratory distress, no labored breathing and no retractions Auscultation: no crackles, no rales, no rhonchi and no wheezes Cardiovascular: Rate/Rhythm: + irregularly irregular Heart Sounds: normal S1 and normal S2; no murmur Vessels: no JVD and no carotid bruit Extremities: no edema Gastrointestinal (Abdomen): Inspection/Auscultation: abdomen normal to inspection and normal bowel sounds; abdomen not distended Percussion/Palpation: abdomen soft; abdomen nontender, no guarding and abdomen not rigid Neurologic: CN's II-XI intact bilaterally and moves all extremities; no focal motor deficits Motor/Sensory: no tremor Results & Data ([facility]) Vital Signs (Past 12 Hours) Vital Signs Temp Pulse Pulse Resp BP BP Pulse Ox 12/13/22 11:24 12/13/22 11:21 36.6 C 89 18 112/90 95 12/13/22 11:02 130 H 12/13/22 08:04 36.7 C 119 H 20 142/76 H 93 12/13/22 04:30 142 H 153/111 H 12/13/22 04:00 132 H 151/97 H 12/13/22 03:40 136 H 165/105 H 12/13/22 03:21 140 H 148/103 H 12/13/22 03:12 128 H 142/103 H 12/13/22 02:24 36.6 C 87 18 130/79 94 O2 Del Method 12/13/22 11:24 Room Air 12/13/22 11:21 Room Air 12/13/22 11:02 12/13/22 08:04 Room Air 12/13/22 04:30 12/13/22 04:00 12/13/22 03:40 12/13/22 03:21 12/13/22 03:12 12/13/22 02:24 Room Air Laboratory Results Laboratory Results - last 24 hr 12/12/22 12/12/22 12/13/22 16:20 20:04 05:29 WBC 7.73 RBC 4.47 L Hgb 14.5 Hct 41.6 L MCV 93.1 MCH 32.4 MCHC 34.9 RDW Std Deviation 40.6 RDW Coeff of Cindy 11.9 Plt Count 179 MPV 11.1 Sodium Potassium Chloride Carbon Dioxide Anion Gap BUN Creatinine Est Cr Clr Drug Dosing Est GFR ( Amer) Est GFR (Non-Af Amer) BUN/Creatinine Ratio Glucose POC Glucose 115 H 95 Calcium Magnesium Troponin I High Sens 12/13/22 12/13/22 12/13/22 05:29 07:43 11:17 WBC RBC Hgb Hct MCV MCH MCHC RDW Std Deviation RDW Coeff of Cindy Plt Count MPV Sodium 136 Potassium 3.3 L Chloride 103 Carbon Dioxide 24 Anion Gap 9 BUN 10 Creatinine 0.88 Est Cr Clr Drug Dosing 93.2 Est GFR ( Amer) 100.9 Est GFR (Non-Af Amer) 87.0 BUN/Creatinine Ratio 11.4 Glucose 132 H POC Glucose 112 H 166 H Calcium 9.7 Magnesium 1.8 Troponin I High Sens 13.1 D 12/13/22 12:08 WBC RBC Hgb Hct MCV MCH MCHC RDW Std Deviation RDW Coeff of Cindy Plt Count MPV Sodium Potassium Chloride Carbon Dioxide Anion Gap BUN Creatinine Est Cr Clr Drug Dosing Est GFR ( Amer) Est GFR (Non-Af Amer) BUN/Creatinine Ratio Glucose POC Glucose Calcium Magnesium Troponin I High Sens Pending
[2022-12-14] MEDS: METOPROLOL TARTRATE 25 MG TAB PO SCH (05:09)
[2022-12-14 06:15] LABS: Basophils # (auto) 0.05 K/uL (0-0.2); Basophils % (auto) 0.6 %; Eosinophils # (auto) 0.12 K/uL (0-0.50); Eosinophils % (auto) 1.6 %; Hematocrit (blood only) 42.1 % (42.0-52.0); Hemoglobin 14.6 g/dl (14.0-18.0); Immature Granulocytes # (auto) 0.03 K/uL (0.01-0.20); Immature Granulocytes % (auto) 0.4 %; Lymphocytes % (auto) 28.5 %; Mean Corpuscular Hemoglobin 32.6 pg (25.0-34.0); Mean Corpuscular Hgb Conc 34.7 g/dL (32.0-36.0); Mean Platelet Volume 10.6 fL (9.4-12.4); Monocytes # (auto) 0.77 K/uL (0.11-0.59); Neutrophils # (auto) 4.56 K/uL (1.40-6.50); Neutrophils % (auto) 58.9 %; Platelet Count 193 K/uL (130-400); RDW Coefficient of Variation 11.9 % (11.5-14.5); RDW Standard Deviation 41.3 fL (36.4-46.3); Red Blood Count 4.48 M/uL (4.70-6.10); White Blood Count 7.73 K/ul (4.8-10.8)
[2022-12-14 06:34] LABS: BUN Creatinine Ratio 13.1 (10-20); Calcium 9.3 mg/dl (8.5-10.1); Creatinine Clr Calc Pharmacy 97.1 ml/min; Est GFR (African American) 102.8 ml/min; Est GFR (Non-African American) 88.7 ml/min; Magnesium 1.8 mg/dl (1.7-2.4); Potassium 3.7 mmol/L (3.5-5.1)
[2022-12-14] MEDS ORDERED: POTASSIUM CHLORIDE CRTAB 20 MEQ TABCR PO STA (07:53)
--- NOTE | 2022-12-14 08:53 | Electrocardiogram Report ---
Test Reason : Blood Pressure : / mmHG Vent. Rate : 127 BPM Atrial Rate : 120 BPM P-R Int : 000 ms QRS Dur : 076 ms QT Int : 296 ms P-R-T Axes : 000 -04 046 degrees QTc Int : 430 ms Atrial fibrillation with rapid ventricular response Abnormal ECG When compared with ECG of 12-DEC-2022 05:43, HR has increased by 19 bpm Otherwise no significant change Confirmed by Barney Otero ([id number]) on 12/14/2022 8:53:00 AM Referred By: REFERRED SELF Confirmed By:Barney Otero
--- NOTE | 2022-12-14 09:54 | Electrocardiogram Report ---
Test Reason : Blood Pressure : / mmHG Vent. Rate : 075 BPM Atrial Rate : 075 BPM P-R Int : 186 ms QRS Dur : 076 ms QT Int : 422 ms P-R-T Axes : 027 -05 006 degrees QTc Int : 471 ms Normal sinus rhythm Normal ECG When compared with ECG of 13-DEC-2022 05:46, Sinus rhythm has replaced Atrial fibrillation Vent. rate has decreased BY 52 BPM Confirmed by Barney Otero ([id number]) on 12/14/2022 9:53:26 AM Referred By: REFERRED SELF Confirmed By:Barney Otero
--- NOTE | 2022-12-14 10:10 | Cardiology Progress Note ---
Date of Service December 14, 2022 Assessment & Plan (1) Paroxysmal atrial fibrillation: (2) Alcohol abuse: (3) Hypertension: (4) Hypercholesteremia: Plan [id number] = 2 secondary to age and hypertension. Admits to excessive alcohol intake, 6 whiskey drinks per day and occasional falls. Planning inpatient detox at the end of the month. Stroke risk reviewed. Currently, he is not a strong candidate for long-term anticoagulation due to his ongoing excessive alcohol intake and occasional falls. Currently sinus rhythm. Transition metoprolol to tartrate to 50 mg twice daily. Discontinue intravenous diltiazem. Add low-dose aspirin 81 mg daily. Replace electrolytes as indicated. Outpatient cardiology follow-up in 2 weeks. Addendum: Called by nursing secondary to recurrent atrial fibrillation at 100- 110 bpm. Add oral diltiazem 30 mg 3 times daily. First dose now. Admission and Anticipated Discharge Date Admission Date: December 11, 2022 Subjective Patient seen and examined at the bedside. Currently in sinus rhythm. Denies chest pain or palpitations. No new concerns/complaints today. Review of Systems Review of Systems: All systems reviewed & are unremarkable except as noted in Subjective Physical Exam Constitutional: well nourished; no acute distress Respiratory: normal respiratory effort; no respiratory distress, no labored breathing and no retractions Auscultation: no crackles, no rales, no rhonchi and no wheezes Cardiovascular: Rate/Rhythm: + irregularly irregular Heart Sounds: normal S1 and normal S2; no murmur Vessels: no JVD and no carotid bruit Extremities: no edema Gastrointestinal (Abdomen): Inspection/Auscultation: abdomen normal to inspection and normal bowel sounds; abdomen not distended Percus alysia/Palpation: abdomen soft; abdomen nontender, no guarding and abdomen not rigid Neurologic: CN's II-XI intact bilaterally and moves all extremities; no focal motor deficits Motor/Sensory: no tremor Results & Data ([facility]) Vital Signs (Past 12 Hours) Vital Signs Temp Pulse Pulse Resp BP BP Pulse Ox 12/14/22 07:30 36.7 C 76 16 126/80 94 12/14/22 07:12 73 12/14/22 03:00 36.8 C 80 19 105/63 95 12/14/22 00:00 12/13/22 23:00 139 H 12/13/22 23:33 36.7 C 98 H 18 140/90 94 O2 Del Method O2 Del Method 12/14/22 07:30 Room Air 12/14/22 07:12 12/14/22 03:00 Room Air 12/14/22 00:00 Room Air 12/13/22 23:00 12/13/22 23:33 Room Air
[2022-12-14] MEDS: ATORVASTATIN 20 MG TAB PO SCH (10:34)
[2022-12-14] MEDS: FOLIC ACID 1 MG TAB PO SCH (10:35)
[2022-12-14] MEDS: hydroCHLOROthiazide 25 MG TAB PO SCH (10:37)
[2022-12-14] MEDS: MAGNESIUM OXIDE 400 MG TAB PO SCH ×2 (10:38→20:21)
[2022-12-14] MEDS: LOSARTAN POTASSIUM 50 MG TAB PO SCH (10:38)
[2022-12-14] MEDS: METOPROLOL TARTRATE 50 MG TAB PO SCH ×2 (10:39→20:21)
[2022-12-14] MEDS: CEROVITE ADV FORMULA TAB PO SCH (10:42)
[2022-12-14] MEDS: THIAMINE HCL 100 MG TAB PO SCH (10:42)
[2022-12-14] MEDS: ASPIRIN 81 MG CHEW PO SCH (10:43)
[2022-12-14] MEDS: INSULIN ASPART PER UNIT SC SCH ×4 (11:02→20:26)
[2022-12-14] MEDS: dilTIAZem HCL 125 MG in DEXTROSE 5% 100 ML IV SCH (11:06)
[2022-12-14] MEDS ORDERED: dilTIAZem HCL 30 MG TAB PO ONE (11:15)
[2022-12-14] MEDS ORDERED: Ativan PO Alcohol Withdrawal--Active Protocol PO PRN (13:16)
[2022-12-14] MEDS ORDERED: LORazepam 1 MG TAB PO PRN ×2 (13:16)
--- NOTE | 2022-12-14 13:25 | Hospitalist Progress Note ---
Date of Service December 14, 2022 Assessment & Plan (1) Atrial fibrillation with RVR: (2) SOB (shortness of breath): (3) Hypertension: (4) T2DM (type 2 diabetes mellitus): (5) Hypercholesteremia: (6) Alcohol abuse: Plan This is a 72 yr old M who has significant PMH of HTN, HLD, Sinus tachy, T2DM, alcohol abuse who presents to ED at referral of PCP due to afib with RVR and SOB. Pt complains of feeling SOB for last 2-3 days. SOB New onset Afib with RVR --Patient reports symptoms of shortness of breath and palpitation for 2 days prior to admission. History of hypertension, type 2 diabetes mellitus, alcohol abuse Zio patch in 2020 showed sinus rhythm with occasional SVT On presentation to the ED, his ventricular rate was in 150s to 160s. He received IV Lopressor X3 . He was started on Cardizem drip with 20 mg bolus. Ventricle rate in 100-110 on Cardizem drip of 10mg/h Patient converted to SR on december 12, again converted back to A.fib around 2:40 am on December 13. - No troponin elevation Echo: EF of 50-55%. LA midly dilated. mild mitral regurgitation. Per telemetry review, patient has flipped back to A-fib from NSR in a.m. again. Plan; Cardiology on board; currently on low-dose aspirin, metoprolol 50 Mg twice daily, diltiazem 30 mg 3 times daily. As per cardiology, patient not a strong candidate for long-term anticoagulation due to ongoing excessive alcohol use and occasional falls. Lo venox discontinued as per recommendation. - Continue with telemetry monitoring. - MOnitor and replete electrolytes. HTN BP stable He takes hydrochlorothiazide, losartan and metoprolol. Continue same. HLD continue statin T2DM a1c 11/2022 6.1 hold metformin correction novlog as needed Alcohol abuse 6 whiskey drinks daily, last drink on 12/10/2022 received banana bag in ED daily thiamine, folic acid prn oral ativan for w/drawl pt states plan to go to rehab/detox at end of month No withdrawal symptom at present. AWSS protocol in place Dvt ppx: SCDs Dispo: PCU FULL CODE PCP: Isabell Admission and Anticipated Discharge Date Admission Date: December 11, 2022 Subjective Patient seen and examined at bedside as a follow-up of new onset A-fib with RVR. Of note patient has alcohol use disorder, last alcoholic drink on , 12/10/2021 per patient. He drinks 6 to 7 glasses of whiskey every day for a long time. Patient was sitting up in bed, on room air, NAD, reports no new acute event overnight, reports eating okay and moving bowels okay, denies any chest pain or palpitation or dizziness or headache or other review of symptoms. Physical Exam Physical Exam: GENERAL: Alert and oriented x3. NAD, on RA. HEENT: No pallor, no icterus. Pupils equal, round and reactive to light. Oral mucosa moist. NECK: No JVD, no neck masses. HEART: S1 and S2 heard. Regular rate and rhythm. No murmur, no gallop. RESPIRATORY SYSTEM: Normal AP diameter. No accessory muscle use. No wheezing, no crackles. ABDOMEN: Soft, bowel sounds present, nontender, no distention. CENTRAL NERVOUS SYSTEM: No facial droop. Speech is clear. Obeys simple comman ds. Moves extremities. EXTREMITIES: No edema, no erythema seen. Results & Data Results & Data ([facility]) Vital Signs (Past 12 Hours) Vital Signs Temp Pulse Pulse Pulse Resp BP BP 12/14/22 11:23 36.5 C 85 18 131/81 12/14/22 10:23 76 126/80 12/14/22 07:30 36.7 C 76 16 126/80 12/14/22 07:12 73 12/14/22 03:00 36.8 C 80 19 105/63 Pulse Ox O2 Del Method 12/14/22 11:23 93 Room Air 12/14/22 10:23 12/14/22 07:30 94 Room Air 12/14/22 07:12 12/14/22 03:00 95 Room Air
[2022-12-14] MEDS: dilTIAZem HCL 30 MG TAB PO SCH ×2 (14:54→20:22)
[2022-12-15] MEDS: INSULIN ASPART PER UNIT SC SCH ×2 (07:28→11:39)
[2022-12-15 07:42] LABS: BUN Creatinine Ratio 14.7 (10-20); Calcium 10.3 mg/dl (8.5-10.1); Creatinine Clr Calc Pharmacy 85.8 ml/min; Est GFR (African American) 93.6 ml/min; Est GFR (Non-African American) 80.8 ml/min; Magnesium 2.2 mg/dl (1.7-2.4); Phosphorus 4.1 mg/dl (2.5-4.9); Potassium 4.1 mmol/L (3.5-5.1)
--- NOTE | 2022-12-15 08:02 | Electrocardiogram Report ---
Test Reason : Blood Pressure : / mmHG Vent. Rate : 072 BPM Atrial Rate : 072 BPM P-R Int : 174 ms QRS Dur : 086 ms QT Int : 428 ms P-R-T Axes : 013 -05 019 degrees QTc Int : 468 ms Normal sinus rhythm Normal ECG When compared with ECG of 14-DEC-2022 06:16, No significant change Confirmed by Barney Otero ([id number]) on 12/15/2022 8:01:57 AM Referred By: REFERRED SELF Confirmed By:Barney Otero
[2022-12-15] MEDS: FOLIC ACID 1 MG TAB PO SCH (09:08)
[2022-12-15] MEDS: ASPIRIN 81 MG CHEW PO SCH (09:08)
[2022-12-15] MEDS: ATORVASTATIN 20 MG TAB PO SCH (09:08)
[2022-12-15] MEDS: hydroCHLOROthiazide 25 MG TAB PO SCH (09:08)
[2022-12-15] MEDS: LOSARTAN POTASSIUM 50 MG TAB PO SCH (09:08)
[2022-12-15] MEDS: dilTIAZem HCL 30 MG TAB PO SCH (09:08)
[2022-12-15] MEDS: THIAMINE HCL 100 MG TAB PO SCH (09:09)
[2022-12-15] MEDS: MAGNESIUM OXIDE 400 MG TAB PO SCH (09:09)
[2022-12-15] MEDS: METOPROLOL TARTRATE 50 MG TAB PO SCH (09:09)
[2022-12-15] MEDS: CEROVITE ADV FORMULA TAB PO SCH (09:09)
--- NOTE | 2022-12-15 09:55 | Cardiology Progress Note ---
Date of Service December 15, 2022 Assessment & Plan (1) Paroxysmal atrial fibrillation: (2) Alcohol abuse: (3) Hypertension: (4) Hypercholesteremia: Plan [id number] = 2 secondary to age and hypertension. Admits to excessive alcohol intake, 6 whiskey drinks per day and occasional falls. Planning inpatient detox at the end of the month. Stroke risk reviewed. Currently, he is not a strong candidate for long-term anticoagulation due to his ongoing excessive alcohol intake and occasional falls. Currently sinus rhythm. Responding well to combination of metoprolol and low- dose diltiazem. Recommend discharge on metoprolol 50 mg twice daily, and Cardizem 30 mg twice daily. Continue low-dose aspirin 81 mg daily. Replace electrolytes as indicated. Outpatient cardiology follow-up in 2 weeks. Admission and Anticipated Discharge Date Admission Date: December 11, 2022 Subjective Patient seen examined the bedside. Sinus rhythm overnight. No recurrent atrial fibrillation this morning. Blood pressure improved. Offers no concerns/complaints. Review of Systems Review of Systems: All systems reviewed & are unremarkable except as noted in Subjective Physical Exam Constitutional: well nourished; no acute distress Respiratory: normal respiratory effort; no respiratory distress, no labored breathing and no retractions Auscultation: no crackles, no rales, no rhonchi and no wheezes Cardiovascular: Rate/Rhythm: regular rate and regular rhythm Heart Sounds: normal S1 and normal S2; no murmur Vessels: no JVD and no carotid bruit Extremities: no edema Gastrointestinal (Abdomen): Inspection/Auscultation: abdomen normal to inspection and normal bowel sounds; abdomen not distended Percussion/Palpation: abdomen soft; abdomen nontender, no guarding and abdomen not rigid Neurologic: CN's II-XI intact bilaterally and moves all extremities; no focal motor deficits Motor/Sensory: no tremor Results & Data ([facility]) Vital Signs (Past 12 Hours) Vital Signs Temp Pulse Pulse Pulse Resp BP Pulse Ox 12/15/22 09:00 70 12/15/22 06:58 36.9 C 80 18 123/83 94 12/15/22 03:09 37.1 C 76 18 99/62 L 95 12/15/22 00:38 67 12/14/22 22:32 36.6 C 74 18 106/62 93 O2 Del Method 12/15/22 09:00 12/15/22 06:58 Room Air 12/15/22 03:09 Room Air 12/15/22 00:38 12/14/22 22:32 Room Air
--- NOTE | 2022-12-15 12:13 | Discharge Summary ---
Date of Service December 15, 2022 Admission HPI Per Admitting Provider This is a 72 yr old M who has significant PMH of HTN, HLD, Sinus tachycardia, T2DM, alcohol abuse who presents to ED at referral of PCP due to afib with RVR and SOB. He was seen in [facility] today for follow-up. His BP was noted to be high and therefore appointment was made with PCP. EKG revealed A. fib with heart rates in the 170s and he was referred to ED. Pt complains of feeling SOB for last 2-3 days. He further complains of palpitations. He states if feels similar to a couple years ago when he wore a monitor for a week. At that time it didn't show anything significant. He was placed on metoprolol for this. These symptoms mostly went away and never recurred. He denies any structural heart disease and no prior hx of PCI or stents. He takes a daily ASA, "because I was told to." He does complain of a cough that is nonproductive. He denies f/c/s, chest pain, uri sx, dizziness, lightheaded, n/v/d, abd pain, change in bowel or urinary habits. He does drink alcohol approximately 6 drinks a day. He drinks 6 whiskey drinks in the evening. He is planning to seek Detox treatment at end of month. He also has 3 cups of coffee a day. He is retired from working in the [email or web address] He has a positive FH of CAD with father who passed at 48 due to massive [place]. Admission Exam Per Admitting Provider Constitutional: Alert oriented x3; not in any distress. Head: Normocephalic, Atraumatic Eyes: PERRL, conjunctivae normal, anicteric sclerae ENMT: external ear and nose normal, oropharynx normal Neck: trachea midline, no thyromegaly normal visual inspection Respiratory: normal respiratory effort, lungs clear to auscultation, no wheeze, rales, rhonchi. Normal insp/exp effort, no accessory muscle use Cardiovascular: Irregular, no murmur, no edema Vessels: no JVD or carotid bruit Chest: normal inspection of chest Abdomen: normal bowel sounds, soft, nontender, no hepatosplenomegaly Musculoskeletal: no cyanosis or clubbing, extremities motor strength 5/5 Skin: no rashes, warm and dry normal turgor Neurologic: PERRL, EOMI, accommodation nl, no face palsy, no dysarthria CN's II- XI intact bilaterally and moves all extremities Psychiatric: A+Ox3, euthymic affect Lymphatic: no cervical or axillary lymphadenopathy Principal Diagnosis A-fib with RVR, new onset Alcohol abuse Discharge Exam GENERAL: Alert and oriented x3. NAD, on RA. HEENT: No pallor, no icterus. Pupils equal, round and reactive to light. Oral mucosa moist. NECK: No JVD, no neck masses. HEART: S1 and S2 heard. Regular rate and rhythm. No murmur, no gallop. RESPIRATORY SYSTEM: Normal AP diameter. No accessory muscle use. No wheezing, no crackles. ABDOMEN: Soft, bowel sounds present, nontender, no distention. CENTRAL NERVOUS SYSTEM: No facial droop. Speech is clear. Obeys simple commands. Moves extremities. EXTREMITIES: No edema, no erythema seen. Discharge Data Allergies Allergy/AdvReac Type Severity Reaction Status Date / Time No Known Allergies Allergy Verified 12/11/22 17:03 Consultations 12/11/22 17:46 ED Decision to Admit Stat 12/11/22 18:46 Consult Cardiology Routine Hospital Course (1) Atrial fibrillation with RVR: (2) SOB (shortness of breath): (3) Hypertension: (4) T2DM (type 2 diabetes mellitus): (5) Hypercholesteremia: (6) Alcohol abuse: Plan This is a 72 yr old M who has significant PMH of HTN, HLD, Sinus tachy, T2DM, alcohol abuse who presents to ED at referral of PCP due to afib with RVR and SOB. Pt complains of feeling SOB for last 2-3 days. He was managed for the following: SOB New onset Afib with RVR --Patient reports symptoms of shortness of breath and palpitation for 2 days prior to admission. History of hypertension, type 2 diabetes mellitus, alcohol abuse Zio patch in 2020 showed sinus rhythm with occasional SVT On presentation to the ED, his ventricular rate was in 150s to 160s. He received IV Lopressor X3 . He was started on Cardizem drip with 20 mg bolus. Ventricle rate in 100-110 on Cardizem drip of 10mg/h Patient converted to SR on december 12, again converted back to A.fib around 2:40 am on December 13. - No troponin elevation Echo: EF of 50-55%. LA midly dilated. mild mitral regurgitation. Per telemetry review, patient has maintained sinus rhythm since medication changes yesterday. Plan; Cardiology evaluated; currently on low-dose aspirin, metoprolol 50 Mg twice d aily, diltiazem 30 mg twice daily. As per cardiology, patient not a strong candidate for long-term anticoagulation due to ongoing excessive alcohol use and occasional falls. f/u cardio in 2 weeks on DC. - F/u w/ PCP in a week of discharge for eval/labs. HTN BP stable He takes hydrochlorothiazide, losartan and metoprolol. Continue same. HLD continue statin T2DM a1c 11/2022 6.1 hold metformin correction novlog as needed Alcohol abuse 6 whiskey drinks daily, last drink on 12/10/2022 received banana bag in ED daily thiamine, folic acid prn oral ativan for w/drawl pt states plan to go to rehab/detox at end of month, appreciated pt's effort. No withdrawal symptom at present. AWSS protocol in place, low ciwa score, pt stable, no withdrawal. Dvt ppx: SCDs Dispo: PCU FULL CODE PCP: Isabell Patient being discharged home with following instructions at the point of discharge: Follow-up with the primary care physician within a week time and likely will need labs CBC/CMP/magnesium/phosphorus. Follow-up with the cardiology in 2 weeks time upon discharge. For your alcohol abuse, recommend strongly to avoid any alcoholic drink as discussed at bedside. Appreciate your plan of going to rehab/detox at the end of the month, continue to be in touch with your rehab. For your irregular heart rate, you are being discharged on cardiac medication, take them as prescribed. Take your medications as prescribed. Please make sure that you are able to get your medications today by calling your pharmacy before you leave the hospital so that your treatment continuity is not broken. Home Health Attestation I certify that this patient is under my care and that I, or a physicians clinic office assistant working with me, had a face to-face encounter that meets the home health [id number] encounter requirements with this patient. The encounter with the patient was in whole, or in part, for the following medical condition, which is the primary reason for home health care (list medical condition): I certify that, based on my findings, the following services are medically necessary home health services: My clinical findings support the need for the above services because: Further, I certify that my clinical findings support that this patient is homebound (i.e. absences from home require considerable and taxing effort and are for medical reasons or buddhism services or infrequently or of short duration when for other reasons) because: Certification for Home Health Services: Based on the above findings, I certify that this patient is confined to the home and needs intermittent penitentiary care, physical therapy and/or speech therapy or continues to need occupational therapy. The patient is under my care, and I have initiated the establishment of the plan of care. This patient will be followed by a physician who will periodically review the plan of care. Total Time Total Time Spent Total Time Spent (In Minutes): 45 Discharge Plan Discharge Items Patient Disposition: Home - Self-Care Reason For Visit: AFIB RVR Discharge Diagnosis: A-fib with RVR, new onset Alcohol abuse Activity: Resume your previous activity Non-emergency contact: Primary Care Provider Call non-emergency contact if: you have any medication questions, your symptoms worsen and your temperature is above 101.5 Follow-up/Referrals: Dima Whyte MD [Primary Care Provider] - (Date & Time 12/21/2022 11:20 AM Provider Dima Whyte MD [facility] ) Diet: Carb Consistent or DM2 and Heart Healthy Addtl Attending Provider Instructions: Follow-up with the primary care physician within a week time and likely will need labs CBC/CMP/magnesium/phosphorus. Follow-up with the cardiology in 2 weeks time upon discharge. For your alcohol abuse, recommend strongly to avoid any alcoholic drink as discussed at bedside. Appreciate your plan of going to rehab/detox at the end of the month, continue to be in touch with your rehab. For your irregular heart rate, you are being discharged on cardiac medication, take them as prescribed. Take your medications as prescribed. Please make sure that you are able to get your medications today by calling your pharmacy before you leave the hospital so that your treatment continuity is not broken. Pending Studies at Discharge: No Stand-Alone Forms: My [employer], Smoking Cessation Medications and DC Order Prescriptions: New diltiazem HCl 30 mg Tablet 30 mg PO BID Qty: 90 0RF metoprolol tartrate 50 mg Tablet 50 mg PO BID Qty: 60 0RF folic acid 1 mg Tablet 1 mg PO QAM 30 Days Qty: 30 0RF thiamine HCl (vitamin B1) 100 mg Tablet 100 mg PO QAM 30 Days Qty: 30 0RF Continued losartan 50 mg Tablet 50 mg PO QAM atorvastatin 20 mg Tablet 20 mg PO QAM hydrochlorothiazide 25 mg Tablet 25 mg PO QAM metformin 500 mg Tablet Extended Release 24 Hr 1,000 mg PO QAM Multivitamin 50 Plus Tablet 1 tab PO QAM amoxicillin 500 mg Capsule 2,000 mg PO DIRECTED PRN (Reason: PRIOR TO PROCEDURES) aspirin 81 mg Tablet,Delayed Release (Dr/Ec) 81 mg PO QAM Qty: 30 0RF Discontinued metoprolol succinate 25 mg tablet extended release 24 hr 25 mg PO BID Discharge Orders: Discharge Order (Routine); Ordered 12/15/22 Ordered By: Stefania Hsu Admission Data Admit Date/Time: 12/11/22 17:03 Attending Provider: Stefania Hsu Admit Provider: Ricardo Cedeno Primary Care Provider: Dima Whyte Other Providers: Ricardo Cedeno ; David Antonio
[2022-12-15] MEDS ORDERED: dilTIAZem HCL 30 MG TAB PO SCH (21:00)
== END 2022-12-15 12:55 | disposition home or self-care (01) | DRG 310 ==
LOC: ED 14:50 → 2E 17:03 → SUATTDRO 17:03 → 2E 18:46

== ENCOUNTER 2022-12-27 09:19 | Inpatient (IN) ==
[2022-12-27] MEDS ORDERED: THIAMINE HCL 200 MG in SODIUM CHLORIDE 0.9% 50 ML IV STA (09:42)
[2022-12-27] MEDS ORDERED: MAGNESIUM SULFATE / D5W 1 GM/100 ML BAG IV STA (09:42)
[2022-12-27] MEDS ORDERED: SODIUM CHLORIDE 0.9% 500 ML IV STA (09:42)
--- NOTE | 2022-12-27 09:46 | Emergency Department Note ---
Impression & Plan Atrial fibrillation with rapid ventricular response, Heart palpitations, Chronic alcohol use ED Provider Note NAME: MARISOL BURNS AGE: 72 SEX: M : 1950 ARRIVES VIA: Walk-In INFORMANT: Patient, ED PROVIDER(S): Keven Moore DO CHIEF COMPLAINT: Palpitations HPI: The patient is a 72-year-old male who has a history of alcohol use but also has a history of paroxysmal atrial fibrillation who presented to the emergency department for palpitations. The patient states that he does continue to use alcohol. He last drank last evening. The patient states that he was seen in our facility earlier this month. He was admitted. He ultimately did convert to sinus rhythm. He was started on new medications but no anticoagulation was gi kalee to the patient because of his history of alcohol use and his fall risk. The patient denies having any recent trauma. He denies having any chest pain but does complain of some shortness of breath with exertion. The patient states has been compliant with his outpatient medications. The patient has the [employer] kathy on his mobile phone. He was noted to be in sinus rhythm at 5 this morning. At 0732 this a.m. the phone noted that he was in atrial fibrillation. ROS: See above HPI for pertinent positives & negatives. A total of 10 systems reviewed and were otherwise negative. PAST MEDICAL HISTORY: See Below PAST SURGICAL HISTORY: See Below FAMILY HISTORY: See Below SOCIAL HISTORY: See Below HOME MEDICATIONS: See Below ALLERGIES: See Below VITALS: See Below PHYSICAL EXAMINATION: GENERAL: Patient is awake alert in no acute distress patient is resting comfortably and showing no signs of anxiety EYES: The conjunctivae are clear. The pupils are round and reactive. EARS, NOSE, MOUTH AND THROAT: The nose is without any evidence of any deformity. NECK: The neck is nontender and supple. RESPIRATORY: Normal respiratory effort is noted there is no evidence of wheezing rhonchi or rales CARDIOVASCULAR: Irregular heart sounds were noted to auscultation. There is no definite murmur. GASTROINTESTINAL: The abdomen is soft. Abdomen is nontender. MUSCULOSKELETAL/EXTREMITIES: There is no evidence of gross deformity full range of motion is noted in the hips and shoulders. SKIN: There is no obvious evidence of any rash. There are no petechiae, pallor or cyanosis noted. NEUROLOGIC: Patient is awake alert and oriented x3. MEDICAL DECISION MAKING: The patient is a 72-year-old male who presented to the emergency department with palpitations. Patient does have an application on his smart phone that tells him when he goes in atrial fibrillation. He went into atrial fibrillation acutely this morning at approximately 7:30 AM. The patient presented to the emergency department for further evaluation and was treated with IV fluids IV magnesium IV Cardizem and IV beta-blockers. He was feeling somewhat improved on reevaluation but continues to be in atrial fibrillation. Given the patient's past medical history he is not normally taking blood thinners because he is a fall risk. I discussed his condition with the on-call [facility]. They have agreed to evaluate the patient in the emergency department for further management and disposition. Triage Nursing notes reviewed. Prior medical records reviewed Vital Signs: reviewed and remarkable for tachycardia and elevated blood pressure. Differential diagnosis: Premature contractions, electrolyte abnormality, cardiac dysrhythmia, thyroid dysfunction, pulmonary embolism, infection, gastrointestinal, as well as other pathologies. ER treatment provided: See below Diagnostics interpreted by me: ECG: EKG was obtained in the emergency department. My interpretation is atrial fibrillation with RVR at 119 bpm. Poor baseline was noted. Nonspecific ST segment abnormalities were appreciated. This was compared to a tracing from December 15, 2022. Atrial fibrillation is replaced normal sinus rhythm. Cardiac Monitoring: An order was placed for continuous cardiac monitoring. The monitor shows a rate of 98 bpm with atrial fibrillation. Laboratory studies: As stated above and show below. Imaging studies: See below. Radiographic imaging was reviewed by myself Consultation(s): I discussed this case with the ED who is on-call for the [facility]. ED COURSE: Procedures: none Critical Care: I have personally spent greater than 35 minutes of critical care time in the direct management of this patient. This includes bedside care, interpretation of diagnostic studies, and testing, discussion with consultants, patient, and family members, and other required patient management activities. This 35 minutes is in excess of all separately billable procedures. Past Med/Surg History Medical History (Updated 12/27/22 @ 15:43 by JENNY Jewell) Alcohol abuse Atrial fibrillation with RVR BPH (benign prostatic hyperplasia) Hearing deficit History of colon polyps Hyperlipidemia Hypertension Paroxysmal atrial fibrillation T2DM (type 2 diabetes mellitus) Surgical History History of arthroscopy of right knee History of colonoscopy History of esophagogastroduodenoscopy (EGD) History of open reduction and internal fixation (ORIF) procedure right fibula fx--hardware removed History of oral surgery dental implants History of repair of right rotator cuff History of tonsillectomy History of tooth extraction Family History Grandmother (Paternal) Family history of diabetes mellitus Father Coronary heart disease Other No family history of adverse response to anesthesia Social History Smoking Status: Never smoker Second Hand Exposure: No; Do You Dip or Chew Tobacco: Yes; Tobacco Cessation Education Requested by Patient: No Hx Alcohol Use: Yes Alcohol type: hard liquor Hx Substance Use: Yes Preferred Language: Trinidadian Communication Ability: Effective Linen Worker Required: No Beliefs That Will Affect Care: None Current Living Situation: Alone Current Living Situation Comment: [place] Other Information That Helps Us Care for You: No Feels Safe at Home: Yes Safety Concerns: Feels Safe At This Time Assistive Devices: Glasses and Hearing Aid - Bilateral Allergies Allergies Allergy/AdvReac Type Severity Reaction Status Date / Time No Known Allergies Allergy Verified 12/27/22 10:56 Home Meds Home Medications Medication Instructions Recorded Confirmed atorvastatin 20 mg tablet 20 mg PO QAM 04/05/19 12/27/22 hydrochlorothiazide 25 mg tablet 25 mg PO QAM 04/05/19 12/27/22 losartan 50 mg tablet 50 mg PO QAM 04/05/19 12/27/22 metformin 500 mg tablet,extended 1,000 mg PO QAM 04/05/19 12/27/22 release 24 hr [id number] 1 tab PO QAM 04/05/19 12/27/22 tablet (Multivitamin 50 Plus tablet) amoxicillin 500 mg capsule 2,000 mg PO DIRECTED PRN PRIOR 12/11/22 12/27/22 TO PROCEDURES Previous Rx's Medication Instructions Recorded aspirin 81 mg tablet,delayed 81 mg PO QAM #30 tabs 12/15/22 release diltiazem HCl 30 mg tablet 30 mg PO BID #90 tabs 12/15/22 folic acid 1 mg tablet 1 mg PO QAM 30 days #30 tabs 12/15/22 metoprolol tartrate 50 mg tablet 50 mg PO BID #60 tabs 12/15/22 thiamine HCl (vitamin B1) 100 mg 100 mg PO QAM 30 days #30 tabs 12/15/22 tablet Results & Data (ED) Vital Signs Vital Signs - 24 hr 12/27/22 09:22 12/27/22 10:18 12/27/22 11:46 Temperature 36.6 C Temperature Source Temporal Artery Scan Pulse Rate 94 H 99 H 117 H Pulse Rate [Right Finger] Pulse Rhythm [Right Finger] Pulse Strength [Right Finger] Respiratory Rate 18 Respiratory Effort / Characteristics Non-Labored Spontaneous Respiratory Depth Normal Respiratory Pattern Regular Blood Pressure 134/88 153/87 H Blood Pressure [Right Arm] Blood Pressure Mean 103 Blood Pressure Mean [Right Arm] Blood Pressure Position Sitting Blood Pressure Position [Right Arm] Pulse Oximetry 96 Oxygen Delivery Method Room Air Sepsis Recent Fever Within 48 Hours No Sepsis New/Unexplained Change in Mental Status N/A Sepsis Action Taken by Nursing No Action Required 12/27/22 12:00 Temperature Temperature Source Pulse Rate Pulse Rate [Right Finger] 100 H Pulse Rhythm [Right Finger] Irregular Pulse Strength [Right Finger] Normal Respiratory Rate 18 Respiratory Effort / Characteristics Non-Labored Respiratory Depth Normal Respiratory Pattern Regular Blood Pressure Blood Pressure [Right Arm] 126/78 Blood Pressure Mean Blood Pressure Mean [Right Arm] 94 Blood Pressure Position Blood Pressure Position [Right Arm] Lying Pulse Oximetry 95 Oxygen Delivery Method Room Air Sepsis Recent Fever Within 48 Hours Sepsis New/Unexplained Change in Mental Status Sepsis Action Taken by Intermediate Medications Current Medication List: was personally reviewed by me Laboratory Data Attestation: I reviewed the patient's lab results. 12/27/22 09:36 12/27/22 09:36 Lab Results 12/27/22 12/27/22 12/27/22 Range/Units 09:36 09:36 09:36 WBC 9.56 (4.8-10.8) K/ul RBC 4.85 (4.70-6.10) M/uL Hgb 15.5 (14.0-18.0) g/dl Hct 44.9 (42.0-52.0) % MCV 92.6 (80.0-100.0) fL MCH 32.0 (25.0-34.0) pg MCHC 34.5 (32.0-36.0) g/dL RDW Std Deviation 39.7 (36.4-46.3) fL RDW Coeff of Cindy 11.6 (11.5-14.5) % Plt Count 220 (130-400) K/uL MPV 10.5 (9.4-12.4) fL Immature Gran % (Auto) 0.4 % Neut % (Auto) 59.5 % Lymph % (Auto) 31.4 % Trimble % (Auto) 6.7 % Eos % (Auto) 1.4 % Baso % (Auto) 0.6 % Neut # (Auto) 5.69 (1.40-6.50) K/uL Lymph # (Auto) 3.00 (1.2-3.4) K/uL Trimble # (Auto) 0.64 H (0.11-0.59) K/uL Eos # (Auto) 0.13 (0-0.50) K/uL Baso # (Auto) 0.06 (0-0.2) K/uL Immature Gran # (Auto) 0.04 (0.01-0.20) K/uL PT 11.4 (9.0-12.0) Seconds INR 1.1 (0.9-1.1) APTT 29.3 (21.0-31.0) Seconds PTT Ratio 1.1 Sodium 139 (136-145) mmol/L Potassium 4.0 (3.5-5.1) mmol/L Chloride 106 (98-107) mmol/L Carbon Dioxide 25 (21-32) mmol/L Anion Gap 8 (3-11) BUN 14 (6-23) mg/dl Creatinine 0.82 (0.6-1.4) mg/dl Est Cr Clr Drug Dosing 86.6 ml/min Est GFR ( Amer) 103.8 ml/min Est GFR (Non-Af Amer) 89.6 ml/min BUN/Creatinine Ratio 17.1 (10-20) Glucose 139 H (70-99(Fasting)) mg/dl Calcium 10.0 (8.5-10.1) mg/dl Magnesium 1.7 (1.7-2.4) mg/dl Total Bilirubin 0.6 (0.2-1.0) mg/dl AST 36 (13-39) U/L ALT 43 (7-52) U/L Alkaline Phosphatase 53 (34-104) U/L Troponin I High Sens 13.0 (0-20) pg/ml Total Protein 7.4 (6.0-8.3) gm/dl Albumin 4.4 (3.4-5.0) gm/dl Globulin 3.0 (2.5-4.0) gm/dl Albumin/Globulin Ratio 1.5 (0.9-2) Vitamin B12 (180-914) pg/ml TSH (0.300-4.500) uIu/ml Ethyl Alcohol mg/dL (<10.0) mg/dl SARS-CoV-2, RNA, NAAT (NEGATIVE) 12/27/22 12/27/22 12/27/22 Range/Units 09:36 09:36 09:50 WBC (4.8-10.8) K/ul RBC (4.70-6.10) M/uL Hgb (14.0-18.0) g/dl Hct (42.0-52.0) % MCV (80.0-100.0) fL MCH (25.0-34.0) pg MCHC (32.0-36.0) g/dL RDW Std Deviation (36.4-46.3) fL RDW Coeff of Cindy (11.5-14.5) % Plt Count (130-400) K/uL MPV (9.4-12.4) fL Immature Gran % (Auto) % Neut % (Auto) % Lymph % (Auto) % Trimble % (Auto) % Eos % (Auto) % Baso % (Auto) % Neut # (Auto) (1.40-6.50) K/uL Lymph # (Auto) (1.2-3.4) K/uL Trimble # (Auto) (0.11-0.59) K/uL Eos # (Auto) (0-0.50) K/uL Baso # (Auto) (0-0.2) K/uL Immature Gran # (Auto) (0.01-0.20) K/uL PT (9.0-12.0) Seconds INR (0.9-1.1) APTT (21.0-31.0) Seconds PTT Ratio Sodium (136-145) mmol/L Potassium (3.5-5.1) mmol/L Chloride (98-107) mmol/L Carbon Dioxide (21-32) mmol/L Anion Gap (3-11) BUN (6-23) mg/dl Creatinine (0.6-1.4) mg/dl Est Cr Clr Drug Dosing ml/min Est GFR ( Amer) ml/min Est GFR (Non-Af Amer) ml/min BUN/Creatinine Ratio (10-20) Glucose (70-99(Fasting)) mg/dl Calcium (8.5-10.1) mg/dl Magnesium (1.7-2.4) mg/dl Total Bilirubin (0.2-1.0) mg/dl AST (13-39) U/L ALT (7-52) U/L Alkaline Phosphatase (34-104) U/L Troponin I High Sens (0-20) pg/ml Total Protein (6.0-8.3) gm/dl Albumin (3.4-5.0) gm/dl Globulin (2.5-4.0) gm/dl Albumin/Globulin Ratio (0.9-2) Vitamin B12 378 (180-914) pg/ml TSH 2.806 (0.300-4.500) uIu/ml Ethyl Alcohol mg/dL < 10.0 (<10.0) mg/dl SARS-CoV-2, RNA, NAAT (NEGATIVE) 12/27/22 Range/Units 12:05 WBC (4.8-10.8) K/ul RBC (4.70-6.10) M/uL Hgb (14.0-18.0) g/dl Hct (42.0-52.0) % MCV (80.0-100.0) fL MCH (25.0-34.0) pg MCHC (32.0-36.0) g/dL RDW Std Deviation (36.4-46.3) fL RDW Coeff of Cindy (11.5-14.5) % Plt Count (130-400) K/uL MPV (9.4-12.4) fL Immature Gran % (Auto) % Neut % (Auto) % Lymph % (Auto) % Trimble % (Auto) % Eos % (Auto) % Baso % (Auto) % Neut # (Auto) (1.40-6.50) K/uL Lymph # (Auto) (1.2-3.4) K/uL Trimble # (Auto) (0.11-0.59) K/uL Eos # (Auto) (0-0.50) K/uL Baso # (Auto) (0-0.2) K/uL Immature Gran # (Auto) (0.01-0.20) K/uL PT (9.0-12.0) Seconds INR (0.9-1.1) APTT (21.0-31.0) Seconds PTT Ratio Sodium (136-145) mmol/L Potassium (3.5-5.1) mmol/L Chloride (98-107) mmol/L Carbon Dioxide (21-32) mmol/L Anion Gap (3-11) BUN (6-23) mg/dl Creatinine (0.6-1.4) mg/dl Est Cr Clr Drug Dosing ml/min Est GFR ( Amer) ml/min Est GFR (Non-Af Amer) ml/min BUN/Creatinine Ratio (10-20) Glucose (70-99(Fasting)) mg/dl Calcium (8.5-10.1) mg/dl Magnesium (1.7-2.4) mg/dl Total Bilirubin (0.2-1.0) mg/dl AST (13-39) U/L ALT (7-52) U/L Alkaline Phosphatase (34-104) U/L Troponin I High Sens (0-20) pg/ml Total Protein (6.0-8.3) gm/dl Albumin (3.4-5.0) gm/dl Globulin (2.5-4.0) gm/dl Albumin/Globulin Ratio (0.9-2) Vitamin B12 (180-914) pg/ml TSH (0.300-4.500) uIu/ml Ethyl Alcohol mg/dL (<10.0) mg/dl SARS-CoV-2, RNA, NAAT NEGATIVE (NEGATIVE) Administered Medications Discontinued Medications Diltiazem HCl (Diltiazem Hcl 5 Mg/Ml 5 Ml Vial) 10 mg IV NOW STA Stop: 12/27/22 11:40 Last Admin: 12/27/22 11:46 Dose: 10 mg Documented By: AP Co-signed By: JUAN JOSE Gabapentin (Gabapentin 600 Mg Tab) 1,200 mg PO NOW ONE Stop: 12/27/22 12:11 Last Admin: 12/27/22 14:08 Dose: 1,200 mg Documented By: BRII Sodium Chloride (Nss) 500 mls @ 999 mls/hr IV .Q31M STA Stop: 12/27/22 10:12 Last Infusion: 12/27/22 11:36 Dose: 0 mls/hr Documented By: Admin: 12/27/22 10:30 Dose: 999 mls/hr Documented By: AP Thiamine HCl 200 mg/ Sodium (Chloride) 52 mls @ 210 mls/hr IV NOW STA Stop: 12/27/22 09:56 Last Infusion: 12/27/22 11:37 Dose: 0 mls/hr Documented By: Admin: 12/27/22 11:10 Dose: 210 mls/hr Documented By: AP Magnesium Sulfate/Dextrose (Magnesium Sulfate / D5w) 1 gm in 100 mls @ 100 mls/hr IV NOW STA Stop: 12/27/22 10:41 Last Infusion: 12/27/22 12:52 Dose: 0 mls/hr Documented By: Admin: 12/27/22 11:34 Dose: 100 mls/hr Documented By: AP Multivitamins 10 ml/ Thiamine HCl 100 mg/ Folic Acid 1 mg/Sodium Chloride 1,011.2 mls @ 500 mls/hr IV .Q2H2M ONE Stop: 12/27/22 16:01 Last Admin: 12/27/22 14:13 Dose: 500 mls/hr Documented By: BRII Metoprolol Tartrate (Metoprolol Tartrate 1 Mg/Ml Vial) 5 mg IV NOW STA Stop: 12/27/22 11:40 Last Admin: 12/27/22 11:46 Dose: 5 mg Documented By: AP Imaging Data Radiologist's Impression: Chest X-Ray 12/27/22 09:42 SINGLE VIEW CHEST CLINICAL HISTORY: Dysrhythmia. FINDINGS: An AP, portable, upright chest radiograph is compared to study dated 12/11/2022. The heart is enlarged noting atherosclerotic calcification of the thoracic aorta. The pulmonary vasculature is noncongested. There is chronic el evation of the right hemidiaphragm with bibasilar atelectasis. The lungs and pleural spaces are otherwise clear. No pneumothorax is seen. The skeletal structures are osteopenic. The bony thorax is grossly intact. IMPRESSION: Cardiomegaly with no acute cardiopulmonary abnormality. ACT 112: Negative or not required by law. Electronically signed by: Jack Ryan M.D. 12/27/2022 10:32 AM Discharge Plan Visit Data Chief Complaint: Arrhythmia/Palpitations Stated Complaint: AFIB ED Provider: Keven Moore Discharge Problem: Atrial fibrillation with rapid ventricular response, Heart palpitations, Chronic alcohol use Patient Disposition: Admitted As Inpatient Discharge Instructions Interventions: ED Discharge Assessment Last Done: 12/27/22 13:05
[2022-12-27 09:57] LABS: Basophils # (auto) 0.06 K/uL (0-0.2); Basophils % (auto) 0.6 %; Eosinophils # (auto) 0.13 K/uL (0-0.50); Eosinophils % (auto) 1.4 %; Hematocrit (blood only) 44.9 % (42.0-52.0); Hemoglobin 15.5 g/dl (14.0-18.0); Immature Granulocytes # (auto) 0.04 K/uL (0.01-0.20); Immature Granulocytes % (auto) 0.4 %; Lymphocytes % (auto) 31.4 %; Mean Corpuscular Hgb Conc 34.5 g/dL (32.0-36.0); Mean Corpuscular Volume 92.6 fL (80.0-100.0); Mean Platelet Volume 10.5 fL (9.4-12.4); Monocytes # (auto) 0.64 K/uL (0.11-0.59); Monocytes % (auto) 6.7 %; Neutrophils # (auto) 5.69 K/uL (1.40-6.50); Neutrophils % (auto) 59.5 %; Platelet Count 220 K/uL (130-400); RDW Coefficient of Variation 11.6 % (11.5-14.5); RDW Standard Deviation 39.7 fL (36.4-46.3); Red Blood Count 4.85 M/uL (4.70-6.10); White Blood Count 9.56 K/ul (4.8-10.8)
[2022-12-27 10:14] LABS: Albumin Globulin Ratio 1.5 (0.9-2); Albumin Level 4.4 gm/dl (3.4-5.0); BUN Creatinine Ratio 17.1 (10-20); Bilirubin,Total 0.6 mg/dl (0.2-1.0); Creatinine Clr Calc Pharmacy 86.6 ml/min; Est GFR (African American) 103.8 ml/min; Est GFR (Non-African American) 89.6 ml/min; Magnesium 1.7 mg/dl (1.7-2.4); Total Protein 7.4 gm/dl (6.0-8.3)
[2022-12-27 10:31] LABS: INR 1.1 (0.9-1.1); Partial Thromboplastin Ratio 1.1; Partial Thromboplastin Time 29.3 Seconds (21.0-31.0); Prothrombin Time 11.4 Seconds (9.0-12.0)
--- NOTE | 2022-12-27 10:33 | XRay Report ---
SINGLE VIEW CHEST CLINICAL HISTORY: Dysrhythmia. FINDINGS: An AP, portable, upright chest radiograph is compared to study dated 12/11/2022. The heart is enlarged noting atherosclerotic calcification of the thoracic aorta. The pulmonary vasculature is no ncongested. There is chronic elevation of the right hemidiaphragm with bibasilar atelectasis. The elia gs and pleural spaces are otherwise clear. No pneumothorax is seen. The skeletal structures are osteo penic. The bony thorax is grossly intact. IMPRESSION: Cardiomegaly with no acute cardiopulmonary abnormality. ACT 112: Negative or not required by law. Electronically signed by: Jack Ryan M.D. 12/27/2022 10:32 AM
[2022-12-27] MEDS ORDERED: dilTIAZem HCl 5 MG/ML 5 ML VIAL IV STA (11:39)
[2022-12-27] MEDS ORDERED: METOPROLOL TARTRATE 1 MG/ML VIAL IV STA (11:39)
[2022-12-27] MEDS ORDERED: LORazepam 2 MG/1 ML VIAL IV PRN (12:10)
[2022-12-27] MEDS ORDERED: ACETAMINOPHEN 325 MG TAB PO PRN (12:10)
[2022-12-27] MEDS ORDERED: GABAPENTIN 600 MG TAB PO ONE (12:10)
[2022-12-27] MEDS ORDERED: MAGNESIUM HYDROXIDE SUSP 30 ML UDC PO PRN (12:10)
[2022-12-27] MEDS ORDERED: POLYETHYLENE (MIRALAX) 17 GM PACK PO PRN (12:10)
[2022-12-27] MEDS ORDERED: GABAPENTIN 1200MG ALCOHOL WITHDRAWAL LOAD PO STA (12:10)
[2022-12-27] MEDS ORDERED: ALUMINUM/MAGNESIUM SUSP 30 ML UDC PO PRN (12:10)
[2022-12-27] MEDS ORDERED: ONDANSETRON INJ 2 MG/ML 2 ML VIAL IV PRN (12:10)
--- NOTE | 2022-12-27 12:27 | History & Physical Report ---
Date of Service December 27, 2022 Assessment & Plan (1) Paroxysmal atrial fibrillation: (2) Heart palpitations: (3) Chronic alcohol use: (4) T2DM (type 2 diabetes mellitus): (5) Hypertension: (6) Hypercholesteremia: Plan Plan This is a 72 yr old M who has significant PMH of HTN, HLD,T2DM, and alcohol abuse who presents to ED with palpitations. Pt complains of feeling SOB for last 2-3 days and having a non-productive cough. SOB Atrial Fibrillation: in ED given IVF and Given Diltiazem 10 mg in ED Lovenox 1mg/kg bid for anticoagulation- [id number] 3 (age, HTN, T2DM) Recheck Mg+ K+ 4.0 in ED; will trend Check TSH Cards consult No Anticoagulation d/t fall risk to this point On Metoprolol and Losartan; continue Hx of Sinus tachycardia zio monitor in 2020 revealed sinus tachy and 6 brief episodes of svt Uses [employer] kathy (HR kathy) HTN BP stable continue HCTZ and losartan HLD continue Atorvastatin T2DM a1c 11/2022 6.1 hold metformin ACHS FSBS SSI Alcohol abuse 3 whiskey drinks daily, recently cut back from 6 Banana bag ordered daily thiamine, folic acid prn IV ativan for w/drawl 1 mg IV Q8 pt reports going to rehab/detox at end of month Disposition: PCP: Dr. Whyte Code Status: Full code VTE Prophylaxis: Lovenox SQ A total of 87 minutes was spent with greater than 50% of that time personally reviewing all current laboratory work and diagnostic imaging studies obtained in the ED. Additionally, I was able to review the patients past medication reconciliation and history with direct visualization in the patients chart. Included in the time above, a portion of that time was spent assessing the patient while discussing and collaborating with specialists, if necessary, and making medical decisions regarding orders to be placed. All of the aforementioned completed while collaborating with Dr. Hsu for a full treatment plan. Please see his addendum for further details. History of Present Illness Chief Complaint: Palpitations Primary Care Provider: Dima Whyte MD Mr. Nam is a 72 year old male that presented to the [facility] with palpitations. He was recently discharged where he was diagnosed with new onset AF with RVR. He has an extensive PMH that includes: HTN, HLD, Sinus tachycardia, T2DM, and alcohol abuse . Currently, patient lying in his hospital bed in no apparent distress. He complains of having a cough and cold over the past few days without lightheadedness. He denies any structural heart disease and no prior hx of PCI or stents. He takes a daily ASA, but no other anticoagulants due to increaed fall risk related to his alcohol use. Patient states that he has cut back on his alcohol use since his last admission, drinking 3 'small glasses' of whiskey liquor daily. He denies visual or auditory changes, chest pain, dizziness, lightheadedness, n/v/d, abd pain, change in bowel or urinary habits, recent falls or trauma, appetite changes. He is retired from working in the [employer] He has a positive FH of CAD with father who passed at 48 due to massive [place]. Patient will be admitted for further evaluation and management. Please see A/P for further details. Allergies Allergy/AdvReac Type Severity Reaction Status Date / Time No Known Allergies Allergy Verified 12/27/22 10:56 Home Medications Medication Instructions Recorded Confirmed Type atorvastatin 20 mg tablet 20 mg PO QAM 04/05/19 12/27/22 History hydrochlorothiazide 25 mg tablet 25 mg PO QAM 04/05/19 12/27/22 History losartan 50 mg tablet 50 mg PO QAM 04/05/19 12/27/22 History metformin 500 mg tablet,extended 1,000 mg PO QAM 04/05/19 12/27/22 History release 24 hr [id number]-[id number]-mjhbfp 1 tab PO QAM 04/05/19 12/27/22 History tablet (Multivitamin 50 Plus tablet) amoxicillin 500 mg capsule 2,000 mg PO DIRECTED PRN PRIOR 12/11/22 12/27/22 History TO PROCEDURES aspirin 81 mg tablet,delayed 81 mg PO QAM #30 tabs 12/15/22 12/27/22 Rx release diltiazem HCl 30 mg tablet 30 mg PO BID #90 tabs 12/15/22 12/27/22 Rx folic acid 1 mg tablet 1 mg PO QAM 30 days #30 tabs 12/15/22 12/27/22 Rx metoprolol tartrate 50 mg tablet 50 mg PO BID #60 tabs 12/15/22 12/27/22 Rx thiamine HCl (vitamin B1) 100 mg 100 mg PO QAM 30 days #30 tabs 12/15/22 12/27/22 Rx tablet Past Med/Surg History Medical History (Updated 12/27/22 @ 15:43 by JENNY Jewell) Alcohol abuse Atrial fibrillation with RVR BPH (benign prostatic hyperplasia) Hearing deficit History of colon polyps Hyperlipidemia Hypertension Paroxysmal atrial fibrillation T2DM (type 2 diabetes mellitus) Surgical History History of arthroscopy of right knee History of colonoscopy History of esophagogastroduodenoscopy (EGD) History of open reduction and internal fixation (ORIF) procedure right fibula fx--hardware removed History of oral surgery dental implants History of repair of right rotator cuff History of tonsillectomy History of tooth extraction Family History Grandmother (Paternal) Family history of diabetes mellitus Father Coronary heart disease Other No family history of adverse response to anesthesia Social History Smoking Status: Never smoker Second Hand Exposure: No; Do You Dip or Chew Tobacco: Yes; Tobacco Cessation Education Requested by Patient: No Hx Alcohol Use: Yes Alcohol type: hard liquor Hx Substance Use: Yes Preferred Language: Indonesian Communication Ability: Effective Alley Tender Required: No Beliefs That Will Affect Care: None Current Living Situation: Alone Current Living Situation Comment: Lives "[place]." Other Information That Helps Us Care for You: No Feels Safe at Home: Yes Safety Concerns: Feels Safe At This Time Assistive Devices: Glasses and Hearing Aid - Bilateral Review of Systems Review of Systems: Neuro: (-) Falls, trauma, slurred speech HEENT: (-) [place], dizziness, dysphagia, visual or auditory changes CV: (-) CP, palpitations, swelling Resp: (-) SOB GI: (-) appetite changes, N/V/D, bowel changes : (-) urinary changes Skin: (-) rashes Psych: (-) anxiety, depression Physical Exam Physical Exam: Neuro: AAOx4, PERRLA, no aphagia, memory changes, CNII-XII grossly intact HEENT: head normocephalic, moist mucus membranes CV: S1/S2, (-) M/G/R, (-) edema, cap refill < 3 seconds Resp: Lungs CTA in all cristina. On RA GI: Abdomen S/NT/ND, Ax4 bowel sounds, (-) CVA tenderness Musculoskeletal: 5/5 B/L UE strength, 5/5 B/L LE strength. No gait disturbance Skin: (-) rashes , (-) erythema. Psych: euthymic mood Results & Data Results & Data ([facility]) Vital Signs (Past 12 Hours) Vital Signs Temp Pulse Pulse Resp BP BP Pulse Ox 12/27/22 12:00 100 H 18 126/78 95 12/27/22 11:46 117 H 153/87 H 12/27/22 10:18 99 H 12/27/22 09:22 36.6 C 94 H 18 134/88 96 O2 Del Method 12/27/22 12:00 Room Air 12/27/22 11:46 12/27/22 10:18 12/27/22 09:22 Room Air Laboratory Results Short CBC 12/27/22 Range/Units 09:36 WBC 9.56 (4.8-10.8) K/ul Hgb 15.5 (14.0-18.0) g/dl Hct 44.9 (42.0-52.0) % Plt Count 220 (130-400) K/uL BMP 12/27/22 09:36 Sodium 139 Potassium 4.0 Chloride 106 Carbon Dioxide 25 BUN 14 Creatinine 0.82 Glucose 139 H Calcium 10.0 Liver Function 12/27/22 Range/Units 09:36 Total Bilirubin 0.6 (0.2-1.0) mg/dl AST 36 (13-39) U/L ALT 43 (7-52) U/L Alkaline Phosphatase 53 (34-104) U/L Albumin 4.4 (3.4-5.0) gm/dl Diagnostic Findings Chest X-Ray 12/27/22 09:42 SINGLE VIEW CHEST CLINICAL HISTORY: Dysrhythmia. FINDINGS: An AP, portable, upright chest radiograph is compared to study dated 12/11/2022. The heart is enlarged noting atherosclerotic calcification of the thoracic aorta. The pulmonary vasculature is noncongested. There is chronic elevation of the right hemidiaphragm with bibasilar atelectasis. The lungs and pleural spaces are otherwise clear. No pneumothorax is seen. The skeletal structures are osteopenic. The bony thorax is grossly intact. IMPRESSION: Cardiomegaly with no acute cardiopulmonary abnormality. ACT 112: Negative or not required by law. Electronically signed by: Jack Ryan M.D. 12/27/2022 10:32 AM Code Status & VTE Plan Code Status Full Code in the event of cardiac or respiratory arrest VTE Prophylaxis Plan VTE Prophylaxis will be ordered: Yes Supervising Physician Co-Signing Physician Notes 72-year-old male with PMH of new onset A-fib with RVR [diagnosed last admission], alcohol abuse [continues to use despite counseling in his last admission], HTN, HLD, T2DM presented to the ED 12/27 with complaint of A-fib with elevated heart rate and associated with shortness of breath, denies any chest pain or palpitation or nausea or vomiting or sweating. Patient reports he continues to drink after discharge last admission. He noted his heart rate to be elevated at 157 and possible A-fib in his mobile kathy and also noted that he had shortness of breath during the time, hence he presented to the ED for evaluation. Rate improved with 10 Mg IV diltiazem and IV Lopressor in the ED. Magnesium was replaced in the ED. Labs fairly WNL, EKG with jxnal rhythm with rate in 119, troponin WNL. CXR with no acute findings. Continue home metoprolol and cardizem, metoprolol IV as needed, telemetry monitoring, cardiology consult, monitor and replete electrolytes. BEN S protocol. Sliding scale while in hospital. Hep drip for afib. Upon examination: GENERAL: Alert and oriented x3. NAD, on RA. HEENT: No pallor, no icterus. Pupils equal, round and reactive to light. Oral mucosa moist. NECK: No JVD, no neck masses. HEART: S1 and S2 heard. irregular rate and rhythm. No murmur, no gallop. RESPIRATORY SYSTEM: Normal AP diameter. No accessory muscle use. No wheezing, no crackles. ABDOMEN: Soft, bowel sounds present, nontender, no distention. CENTRAL NERVOUS SYSTEM: No facial droop. Speech is clear. Obeys simple commands. Moves extremities. EXTREMITIES: No edema, no erythema seen. I have seen and examined the patient and have discussed the case with the provider above. I agree with the assessment and plan as stated.
[2022-12-27] MEDS ORDERED: MULTI-VITAMIN INFUSION 10 ML, THIAMINE HCL 100 MG, FOLIC ACID 1 MG in SODIUM CHLORIDE 0... IV ONE (14:00)
[2022-12-27] MEDS ORDERED: GLUCOSE 40% GEL 15 GM TUBE PO PRN (16:00)
[2022-12-27] MEDS ORDERED: CARBOHYDRATES FOR HYPOGLYCEMIA PO PRN (16:00)
[2022-12-27] MEDS ORDERED: GLUCOSE 10 TAB/TUBE PO PRN (16:00)
[2022-12-27] MEDS ORDERED: DEXTROSE 50% 50 ML SYRINGE IV PRN (16:00)
[2022-12-27] MEDS ORDERED: GLUCAGON FOR INJ 1 MG VIAL SQ PRN (16:00)
[2022-12-27] MEDS ORDERED: Heparin IV Adult Wt-Based Standard *NO* Bolus Protocol IV SCH (16:11)
[2022-12-27] MEDS: METOPROLOL TARTRATE 1 MG/ML VIAL IV PRN (16:28)
[2022-12-27] MEDS: HEPARIN SODIUM/DEXTROSE 25,000 UNITS/500 ML BAG IV SCH (16:40)
[2022-12-27] MEDS: INSULIN ASPART PER UNIT SC SCH ×2 (16:46→20:25)
[2022-12-27] MEDS: GABAPENTIN 600 MG TAB PO SCH (18:11)
[2022-12-27] MEDS: METOPROLOL TARTRATE 50 MG TAB PO SCH (19:56)
[2022-12-27] MEDS: dilTIAZem HCL 30 MG TAB PO SCH (19:56)
[2022-12-27] MEDS: LANTUS PER UNIT CHARGE SQ SCH (20:31)
[2022-12-27 23:51] LABS: Partial Thromboplastin Ratio 1.8
[2022-12-27 23:53] LABS: Partial Thromboplastin Time 49.2 Seconds (21.0-31.0)
[2022-12-28] MEDS: GABAPENTIN 600 MG TAB PO SCH ×3 (01:11→16:27)
[2022-12-28] MEDS: METOPROLOL TARTRATE 1 MG/ML VIAL IV PRN (02:51)
[2022-12-28] MEDS ORDERED: METOPROLOL TARTRATE 1 MG/ML VIAL IV STA (03:23)
[2022-12-28] MEDS ORDERED: dilTIAZem HCl 5 MG/ML 5 ML VIAL IV STA (05:47)
[2022-12-28 07:20] LABS: Hematocrit (blood only) 40.4 % (42.0-52.0); Hemoglobin 13.9 g/dl (14.0-18.0); Mean Corpuscular Hemoglobin 32.2 pg (25.0-34.0); Mean Corpuscular Hgb Conc 34.4 g/dL (32.0-36.0); Mean Corpuscular Volume 93.5 fL (80.0-100.0); Mean Platelet Volume 11.1 fL (9.4-12.4); Platelet Count 169 K/uL (130-400); RDW Coefficient of Variation 11.7 % (11.5-14.5); RDW Standard Deviation 40.2 fL (36.4-46.3); Red Blood Count 4.32 M/uL (4.70-6.10)
[2022-12-28 07:31] LABS: BUN Creatinine Ratio 12.2 (10-20); Calcium 9.3 mg/dl (8.5-10.1); Creatinine Clr Calc Pharmacy 90.6 ml/min; Est GFR (African American) 99.9 ml/min; Est GFR (Non-African American) 86.2 ml/min; Magnesium 1.8 mg/dl (1.7-2.4)
[2022-12-28 08:09] LABS: Partial Thromboplastin Time 54.5 Seconds (21.0-31.0)
--- NOTE | 2022-12-28 08:15 | Cardiology Consultation ---
Date of Consultation December 28, 2022 Assessment & Plan (1) Atrial fibrillation with RVR: (2) Alcohol abuse: Plan Reoccurrence of paroxysmal A-fib with RVR, initially diagnosed at the beginning of December. Ongoing alcohol abuse, patient actively trying to cut back. Uncontrolled heart rates averaging in the 120s to 160s. Patient mildly symptomatic with palpitations and shortness of breath. [id number] score of 2-currently anticoagulated with heparin for stroke prevention. 1. EKG today showed atrial fibrillation, 105 bpm, QTc 454 ms. Discussed risk versus benefit of antiarrhythmic therapy. Since start of A-fib was noted and patient was anticoagulated appropriately will start sotalol 80 mg twice daily. Stop metoprolol tartrate. For now continue diltiazem. Daily EKGs ordered to assess QTc. Will plan on hospital stay approximally 3 days in length from initiation of sotalol therapy. 2. Had a lengthy discussion regarding the fall and bleeding risk with anticoagulation. Patient has not had any recent falls and notes that he is steady on his feet. We will start Eliquis 5 mg twice daily, discontinue heparin with first dose of Eliquis. 3. Trend BMP-replace potassium for goal of 4.0 and mag of 2.0. Case discussed with Dr. Bello -- Will follow. Supervising Physician Co-Signing Physician Notes I have reviewed the advanced practitioner documentation and agree. I saw and evaluated the patient on date of service referenced in note and have performed the following medically appropriate history and/or exam:given that start of afib can be identified, will attempt medical cardioversion with sotalol. No recent fall risks and going to alcohol rehab, so, believe he is now an anticoagulation candidate and will be started on Eliquis. Continues tele monitor for 72 hours and daily EKG's to follow QTc. History of Present Illness Reason for Consultation: Atrial fibrillation with RVR Requesting Physician: Ashley holloway Attending Physician: Stefania Hsu MD History of Present Illness 72-year-old male who initially presented to [facility] emergency department due to palpitations and shortness of breath, found again to be in atrial fibrillation. This was previously diagnosed at the beginning of December when the patient presented with similar concerns. Notes that on Wednesday morning he woke up at 5:30am to put wood on the fire. He used an kathy on his phone which indicated normal sinus rhythm. He woke again at 7:30 AM, took his heart rhythm and was found to be back in A-fib. He was having palpitations and shortness of breath at this time. Patient was admitted from 12/12 to 12/15 with new onset A-fib. He was treated with oral metoprolol and IV diltiazem. Was anticoagulated with Heparin . Echo during this admission showed a low normal LVEF of 50 to 55%, mildly enlarged left atrium and mild MR. Patient self converted to sinus rhythm in the 70s. Discharged home on metoprolol tartrate 50 mg twice daily and diltiazem 30 mg twice daily. No long-term anticoagulation was started due to risk of bleeding with frequent falls-patient was started on aspirin 81 mg daily. Telemetry: Afib/flutter with PVCs 110s-160s Upon entrance into the room patient was sleeping in bed. Head of bed flat-woke easily. Continues to have mild palpitations and shortness of breath. Denies any chest pain. No lightheadedness or dizziness. No syncope. No orthopnea or PND. No lower extremity edema. Has been actively trying to cut back on alcohol and is down to 3 shots of whiskey nightly (previously 6 shots of whiskey). He has plans to go to alcohol rehab on 01/11. Denies any recent falls. Steady on his feet. Past medical history: Paroxysmal atrial fibrillation, diagnosed 12/12/2022, [id number] of 2 (age, HTN)- not on AC due to fall risk. Hypertension Hyperlipidemia Sinus tachycardia Type 2 diabetes Alcohol abuse, 6 whiskey drinks per day Allergies Allergy/AdvReac Type Severity Reaction Status Date / Time No Known Allergies Allergy Verified 12/27/22 10:56 Home Medications Medication Instructions Recorded Confirmed Type atorvastatin 20 mg tablet 20 mg PO QAM 04/05/19 12/27/22 History hydrochlorothiazide 25 mg tablet 25 mg PO QAM 04/05/19 12/27/22 History losartan 50 mg tablet 50 mg PO QAM 04/05/19 12/27/22 History metformin 500 mg tablet,extended 1,000 mg PO QAM 04/05/19 12/27/22 History release 24 hr [id number]-rpqaewky-[id number] 1 tab PO QAM 05/29/19 02/19/23 History tablet (Multivitamin 50 Plus tablet) amoxicillin 500 mg capsule 2,000 mg PO DIRECTED PRN PRIOR 12/11/22 12/27/22 History TO PROCEDURES aspirin 81 mg tablet,delayed 81 mg PO QAM #30 tabs 12/15/22 12/27/22 Rx release diltiazem HCl 30 mg tablet 30 mg PO BID #90 tabs 12/15/22 12/27/22 Rx folic acid 1 mg tablet 1 mg PO QAM 30 days #30 tabs 12/15/22 12/27/22 Rx metoprolol tartrate 50 mg tablet 50 mg PO BID #60 tabs 12/15/22 12/27/22 Rx thiamine HCl (vitamin B1) 100 mg 100 mg PO QAM 30 days #30 tabs 12/15/22 12/27/22 Rx tablet apixaban 5 mg tablet (Eliquis) 5 mg PO BID #60 tabs 12/29/22 Rx Patient History Medical History (Updated 12/27/22 @ 15:43 by JENNY Jewell) Alcohol abuse Atrial fibrillation with RVR BPH (benign prostatic hyperplasia) Hearing deficit History of colon polyps Hyperlipidemia Hypertension Paroxysmal atrial fibrillation T2DM (type 2 diabetes mellitus) Surgical History History of arthroscopy of right knee History of colonoscopy History of esophagogastroduodenoscopy (EGD) History of open reduction and internal fixation (ORIF) procedure right fibula fx--hardware removed History of oral surgery dental implants History of repair of right rotator cuff History of tonsillectomy History of tooth extraction Family History Grandmother (Paternal) Family history of diabetes mellitus Father Coronary heart disease Other No family history of adverse response to anesthesia Social History Smoking Status: Never smoker Second Hand Exposure: No; Do You Dip or Chew Tobacco: Yes; Tobacco Cessation Education Requested by Patient: No Hx Alcohol Use: Yes Alcohol type: hard liquor Hx Substance Use: Yes Preferred Language: Maori Communication Ability: Effective Java Software Required: No Beliefs That Will Affect Care: None Current Living Situation: Alone Current Living Situation Comment: Lives "[place]." Other Information That Helps Us Care for You: No Feels Safe at Home: Yes Safety Concerns: Feels Safe At This Time Assistive Devices: None Review of Systems Review of Systems: All systems reviewed & are unremarkable except as noted in HPI & below Physical Exam Constitutional: WD/WN, vitals as above no acute distress Eyes: PERRL, conjunctivae normal, anicteric sclerae Neck: normal visual inspection and trachea midline Respiratory: normal respiratory effort, lungs clear to auscultation Cardiovascular: Rate/Rhythm: + tachycardic and + irregularly irregular Heart Sounds: normal S1 and normal S2; no murmur Vessels: no JVD Extremities: no edema Gastrointestinal (Abdomen): normal bowel sounds, soft, nontender, no hepatosplenomegaly Skin: no rashes, warm and dry Psychiatric: A+Ox3, euthymic affect Results & Data ([facility]) Vital Signs (Past 12 Hours) Vital Signs Temp Pulse Pulse Pulse Resp BP BP 12/28/22 07:58 36.4 C L 140 H 18 132/96 12/28/22 06:00 156 H 118/92 12/28/22 03:42 109 H 133/97 12/28/22 03:40 147 H 118/96 12/28/22 02:53 36.4 C L 97 H 18 118/96 12/28/22 02:51 152 H 124/84 12/28/22 01:21 104 H 12/27/22 23:17 36.4 C L 99 H 18 124/84 Pulse Ox O2 Del Method 12/28/22 07:58 94 Room Air 12/28/22 06:00 12/28/22 03:42 12/28/22 03:40 12/28/22 02:53 93 Room Air 12/28/22 02:51 12/28/22 01:21 12/27/22 23:17 92 Room Air Laboratory Results Cardiac Enzymes 12/27/22 Range/Units 09:36 AST 36 (13-39) U/L Troponin I High Sens 13.0 (0-20) pg/ml Coagulation 12/27/22 12/27/22 12/28/22 Range/Units 09:36 22:38 06:52 PT 11.4 (9.0-12.0) Seconds APTT 29.3 49.2 H* 54.5 H* (21.0-31.0) Seconds CBC 12/27/22 12/28/22 Range/Units 09:36 06:52 WBC 9.56 8.50 (4.8-10.8) K/ul RBC 4.85 4.32 L (4.70-6.10) M/uL Hgb 15.5 13.9 L (14.0-18.0) g/dl Hct 44.9 40.4 L (42.0-52.0) % Plt Count 220 169 (130-400) K/uL Neut # (Auto) 5.69 (1.40-6.50) K/uL Lymph # (Auto) 3.00 (1.2-3.4) K/uL [place] # (Auto) 0.64 H (0.11-0.59) K/uL Eos # (Auto) 0.13 (0-0.50) K/uL Baso # (Auto) 0.06 (0-0.2) K/uL Comprehensive Metabolic Panel 12/27/22 12/28/22 Range/Units 09:36 06:52 Sodium 139 136 (136-145) mmol/L Potassium 4.0 4.0 (3.5-5.1) mmol/L Chloride 106 101 (98-107) mmol/L Carbon Dioxide 25 30 (21-32) mmol/L BUN 14 11 (6-23) mg/dl Creatinine 0.82 0.90 (0.6-1.4) mg/dl Glucose 139 H 126 H (70-99(Fasting)) mg/dl Calcium 10.0 9.3 (8.5-10.1) mg/dl AST 36 (13-39) U/L ALT 43 (7-52) U/L Alkaline Phosphatase 53 (34-104) U/L Total Protein 7.4 (6.0-8.3) gm/dl Albumin 4.4 (3.4-5.0) gm/dl Intake and Output 12/27/22 12/28/22 12/28/22 22:59 06:59 14:59 Intake Total 1378.867 / 3668.067 1637.2 / 3668.067 295.133 / 295.133 Balance 1378.867 / 3668.067 1637.2 / 3668.067 295.133 / 295.133 Intake: IV 1078.867 / 1868.067 137.2 / 1868.067 295.133 / 295.133 Heparin Sodium/Dextrose 25,000 67.667 / 204.867 137.2 / 204.867 295.133 / 295.133 units In 500 ml @ 1,400 UNITS/ HR 28 mls/hr IV .[id number] [facility] Rx #:[id number] Multi-Vitamin Infusion 10 ml 1011.2 / 1011.2 Thiamine HCl 100 mg Folic Acid 1 mg In Sodium Chloride 0.9% 1000ML 1,000 ml @ 500 mls/hr IV .Q2H2M ONE Rx#:[id number] Oral 300 / 1800 1500 / 1800 Other: # Unmeasured Voids 1 4 Weight 100.2 kg Weight Measurement Method Standing Scale
[2022-12-28] MEDS: INSULIN ASPART PER UNIT SC SCH ×4 (08:30→20:11)
[2022-12-28] MEDS: THIAMINE HCL 100 MG in SYRINGE 9 ML IV SCH (08:37)
[2022-12-28] MEDS: CEROVITE ADV FORMULA TAB PO SCH (08:37)
[2022-12-28] MEDS: LOSARTAN POTASSIUM 50 MG TAB PO SCH (08:37)
[2022-12-28] MEDS: FOLIC ACID 1 MG in SYRINGE 9.8 ML IV SCH (08:37)
[2022-12-28] MEDS: hydroCHLOROthiazide 25 MG TAB PO SCH (08:37)
[2022-12-28] MEDS: ATORVASTATIN 20 MG TAB PO SCH (08:37)
[2022-12-28] MEDS: LANTUS PER UNIT CHARGE SQ SCH ×2 (08:37→21:08)
[2022-12-28] MEDS: METOPROLOL TARTRATE 50 MG TAB PO SCH (08:37)
[2022-12-28] MEDS: dilTIAZem HCL 30 MG TAB PO SCH ×2 (08:38→21:10)
--- NOTE | 2022-12-28 08:45 | Electrocardiogram Report ---
Test Reason : Blood Pressure : / mmHG Vent. Rate : 119 BPM Atrial Rate : 070 BPM P-R Int : 000 ms QRS Dur : 070 ms QT Int : 316 ms P-R-T Axes : 000 005 056 degrees QTc Int : 444 ms Poor data quality, interpretation may be adversely affected Probably atrial fibrillation Nonspecific ST abnormality Abnormal ECG When compared with ECG of 15-DEC-2022 05:19, atrial fibrillation has replaced Sinus rhythm Vent. rate has increased BY 47 BPM Confirmed by Víctor Meneses ([id number]) on 12/28/2022 8:45:27 AM Referred By: REFERRED SELF Confirmed By:Franklyn Meneses
[2022-12-28] MEDS ORDERED: ASPIRIN 81 MG ECTAB PO SCH (09:00)
[2022-12-28] MEDS: MAGNESIUM SULFATE / D5W 1 GM/100 ML BAG IV SCH ×2 (09:19→11:14)
[2022-12-28] MEDS: HEPARIN SODIUM/DEXTROSE 25,000 UNITS/500 ML BAG IV SCH (09:20)
[2022-12-28] MEDS: APIXABAN 5 MG TABLET PO SCH ×2 (12:07→21:10)
[2022-12-28] MEDS: SOTALOL HCL 80 MG TAB PO SCH ×2 (12:08→21:10)
--- NOTE | 2022-12-28 14:41 | Hospitalist Progress Note ---
Date of Service December 28, 2022 Assessment & Plan (1) Paroxysmal atrial fibrillation: (2) Heart palpitations: (3) Chronic alcohol use: (4) T2DM (type 2 diabetes mellitus): (5) Hypertension: (6) Hypercholesteremia: Plan Plan 72-year-old male with PMH of new onset A-fib with RVR [diagnosed last admission], alcohol abuse [continues to use despite counseling in his last admission], HTN, HLD, T2DM presented to the ED 12/27 with complaint of A-fib with elevated heart rate and associated with shortness of breath, denies any chest pain or palpitation or nausea or vomiting or sweating. Patient reports he continues to drink after discharge last admission. He noted his heart rate to be elevated at 157 and possible A-fib in his mobile kathy and also noted that he had shortness of breath during the time, hence he presented to the ED for evaluation. He is being managed for the following: SOB Atrial Fibrillation: s/p lopressor iv and 10 mg diltiazem iv in ED w/ rate control transiently. [id number] 3 (age, HTN, T2DM), hep drip transitioned to eliquis per cardio. Monitor and replete electrolytes. Cardiology on board, sotalol started. Metorpolol dc'd. Telemetry monitoring, daily EKG for QTc monitoring. Hx of Sinus tachycardia zio monitor in 2020 revealed sinus tachy and 6 brief episodes of svt Uses [employer] kathy (HR kathy) HTN BP stable continue HCTZ and losartan HLD continue Atorvastatin T2DM a1c 11/2022 6.1 hold metformin ACHS FSBS SSI Alcohol abuse 3 whiskey drinks daily, recently cut back from 6 Banana bag ordered daily thiamine, folic acid prn IV ativan for w/drawl 1 mg IV Q8 pt reports going to rehab/detox at end of month Disposition: PCP: Dr. Whyte Code Status: Full code VTE Prophylaxis: on eliquis Admission and Anticipated Discharge Date Admission Date: December 27, 2022 Subjective Patient seen and examined at bedside as a follow-up of atrial fibrillation with RVR and alcohol abuse. Patient was lying in bed, on room air, NAD, reports no chest pain, reports occasional shortness of breath, has been in A-fib with heart rate hovering from 90s to 110s, denies any headache or dizziness or belly pain or acute changes in his bowel or bladder habits. Reports eating okay. Physical Exam Physical Exam: GENERAL: Alert and oriented x3. NAD, on RA. HEENT: No pallor, no icterus. Pupils equal, round and reactive to light. Oral mucosa moist. NECK: No JVD, no neck masses. HEART: S1 and S2 heard. irregular rate and rhythm/90s-100s. No murmur, no gallop. RESPIRATORY SYSTEM: Normal AP diameter. No accessory muscle use. No wheezing, no crackles. ABDOMEN: Soft, bowel sounds present, nontender, no distention. CENTRAL NERVOUS SYSTEM: No facial droop. Speech is clear. Obeys simple commands. Moves extremities. EXTREMITIES: No edema, no erythema seen. Results & Data Results & Data ([facility]) Vital Signs (Past 12 Hours) Vital Signs Temp Pulse Pulse Pulse Resp BP BP 12/28/22 11:26 36.6 C 101 H 19 136/95 12/28/22 07:58 36.4 C L 140 H 18 132/96 12/28/22 06:00 156 H 118/92 12/28/22 03:42 109 H 133/97 12/28/22 03:40 147 H 118/96 12/28/22 02:53 36.4 C L 97 H 18 118/96 12/28/22 02:51 152 H 124/84 Pulse Ox O2 Del Method 12/28/22 11:26 93 Room Air 12/28/22 07:58 94 Room Air 12/28/22 06:00 12/28/22 03:42 12/28/22 03:40 12/28/22 02:53 93 Room Air 12/28/22 02:51
--- NOTE | 2022-12-28 17:09 | Electrocardiogram Report ---
Test Reason : Blood Pressure : / mmHG Vent. Rate : 105 BPM Atrial Rate : 394 BPM P-R Int : 000 ms QRS Dur : 076 ms QT Int : 344 ms P-R-T Axes : 000 -10 013 degrees QTc Int : 454 ms Atrial fibrillation with rapid ventricular response Abnormal ECG When compared with ECG of 27-DEC-2022 09:29, ST no longer elevated in Inferior leads Confirmed by Víctor Meneses ([id number]) on 12/28/2022 5:09:13 PM Referred By: REFERRED SELF Confirmed By:Franklyn Meneses
[2022-12-28] MEDS ORDERED: SODIUM CHLORIDE 0.9% 500 ML IV SCH (23:45)
[2022-12-29] MEDS: GABAPENTIN 600 MG TAB PO SCH ×2 (00:15→11:58)
[2022-12-29 07:19] LABS: BUN Creatinine Ratio 11.2 (10-20); Calcium 9.3 mg/dl (8.5-10.1); Creatinine Clr Calc Pharmacy 91.9 ml/min; Est GFR (African American) 100.4 ml/min; Est GFR (Non-African American) 86.6 ml/min; Potassium 4.2 mmol/L (3.5-5.1)
--- NOTE | 2022-12-29 07:36 | Cardiology Progress Note ---
Date of Service December 29, 2022 Assessment & Plan (1) Atrial fibrillation with RVR: (2) Alcohol abuse: Plan Reoccurrence of symptomatic paroxysmal A-fib with RVR, initially diagnosed at the beginning of December. Ongoing alcohol abuse, patient actively trying to cut back. [id number] score of 3 (age, HTN, DM). Over night experiencing PAF- converted to NSR at 0145, HRs 70-80s. 1. EKG today showed NSR, 83 bpm, QTc 505 ms. Will continue to monitor closely. Continue sotalol 80 mg twice daily. (Today the patient will receive dose 3 and 4). Metoprolol has since been discontinued. Continue diltiazem 30 mg twice daily. 2. Continue daily EKGs- ordered to assess QTc. Will plan on hospital stay approximally 3 days in length from initiation of sotalol therapy. 2. Continue Eliquis 5 mg twice daily. Again had a lengthy discussion regarding the fall and bleeding risk with anticoagulation. Encouraged alcohol cessation and rehab in January. 3. Trend BMP-replace potassium for goal of 4.0 and mag of 2.0. Case discussed with Dr. Bello -- Will follow. Admission and Anticipated Discharge Date Admission Date: December 27, 2022 Supervising Physician Co-Signing Physician Notes I have reviewed the advanced practitioner documentation and agree. I saw and evaluated the patient on date of service referenced in note and have performed the following medically appropriate history and/or exam: successful cardioversion to sinus rhythm. No recent fall risks and going to alcohol rehab, so, believe he is now an anticoagulation candidate and will be started on Eliquis. Continues tele monitor for 72 hours and daily EKG's to follow QTc. QTc of 505 ms, cont to monitor. Subjective 72-year-old male who initially presented to [facility] for recurrence of symptomatic PAF. Initially diagnosed with atrial fibrillation at the beginning of December 2022. Patient woke Wednesday morning (12/27) around 5:30 AM to put wood on his fire. Checked his heart rhythm on an kathy on his phone (with [employer]) and was in normal sinus rhythm. Woke at 7:30 AM again checked his heart rate and was back in A-fib with elevated rates. Presented to [facility]- was started on heparin drip for stroke prevention. Given IV metoprolol and diltiazem. Rates remained elevated. 12/28: Patient remained in atrial fibrillation with rates between 120 and 160. Sotalol 80 mg twice daily was started. Metoprolol dc'd. Diltiazem continued. Heparin drip was transitioned to Eliquis 5 mg twice daily. 12/29: Tele: Paroxysmal afib, converted to SR at 0145 am with sinus rates in the 70- 80s. EKG: NSR 83 bpm, QTc 505 ms Upon entrance into the room patient resting in bed reading a book. No acute concerns. Was up ambulating in the hallway yesterday. No chest pain, SOB, or palpitations. No dizziness/lightheadness. Review of Systems Review of Systems: All systems reviewed & are unremarkable except as noted in HPI & below Physical Exam Constitutional: WD/WN, vitals as above no acute distress Eyes: PERRL, conjunctivae normal, anicteric sclerae Neck: normal visual inspection and trachea midline Respiratory: normal respiratory effort, lungs clear to auscultation Cardiovascular: Rate/Rhythm: regular rate, regular rhythm and + irregularly irregular Heart Sounds: normal S1 and normal S2; no murmur Vessels: no JVD Extremities: no edema Gastrointestinal (Abdomen): normal bowel sounds, soft, nontender, no hepatosplenomegaly Skin: no rashes, warm and dry Psychiatric: A+Ox3, euthymic affect Results & Data ([facility]) Vital Signs (Past 12 Hours) Vital Signs Temp Pulse Pulse Resp BP Pulse Ox O2 Del Method 12/29/22 02:53 36.3 C L 72 19 119/80 94 Room Air 12/28/22 22:14 125 H 12/28/22 23:04 36.5 C 77 19 99/61 L 92 Room Air 12/28/22 19:30 36.5 C 75 18 122/82 95 Room Air Laboratory Results Comprehensive Metabolic Panel 12/29/22 Range/Units 06:46 Sodium 139 (136-145) mmol/L Potassium 4.2 (3.5-5.1) mmol/L Chloride 104 (98-107) mmol/L Carbon Dioxide 32 (21-32) mmol/L BUN 10 (6-23) mg/dl Creatinine 0.89 (0.6-1.4) mg/dl Glucose 103 H (70-99(Fasting)) mg/dl Calcium 9.3 (8.5-10.1) mg/dl Intake and Output 12/28/22 12/29/22 12/29/22 22:59 06:59 14:59 Intake Total 675 / 1733.133 500 / 1733.133 Output Total Balance 674 / 1732.133 500 / 1732.133 Intake: IV 0 / 1058.133 500 / 1058.133 Heparin Sodium/Dextrose 25,000 0 / 358.133 units In 500 ml @ 1,400 UNITS/ HR 28 mls/hr IV .[id number] [facility] Rx #:[id number] Sodium Chloride 0.9% 500 ml @ 500 / 500 500 mls/hr IV .Q1H [facility] Rx#: [id number] Oral 675 / 675 Output: # Bowel Movements Other: # Unmeasured Voids 3 Weight 100.8 kg Weight Measurement Method Built in [facility]
[2022-12-29] MEDS: INSULIN ASPART PER UNIT SC SCH ×4 (08:01→20:03)
[2022-12-29] MEDS: dilTIAZem HCL 30 MG TAB PO SCH ×2 (08:09→20:46)
[2022-12-29] MEDS: THIAMINE HCL 100 MG in SYRINGE 9 ML IV SCH (08:09)
[2022-12-29] MEDS: hydroCHLOROthiazide 25 MG TAB PO SCH (08:09)
[2022-12-29] MEDS: LOSARTAN POTASSIUM 50 MG TAB PO SCH (08:09)
[2022-12-29] MEDS: ATORVASTATIN 20 MG TAB PO SCH (08:09)
[2022-12-29] MEDS: FOLIC ACID 1 MG in SYRINGE 9.8 ML IV SCH (08:09)
[2022-12-29] MEDS: CEROVITE ADV FORMULA TAB PO SCH (08:09)
[2022-12-29] MEDS: LANTUS PER UNIT CHARGE SQ SCH ×2 (08:09→20:45)
[2022-12-29] MEDS: APIXABAN 5 MG TABLET PO SCH ×2 (08:09→20:46)
[2022-12-29] MEDS: SOTALOL HCL 80 MG TAB PO SCH ×2 (10:13→20:46)
--- NOTE | 2022-12-29 10:51 | Electrocardiogram Report ---
Test Reason : Blood Pressure : / mmHG Vent. Rate : 083 BPM Atrial Rate : 083 BPM P-R Int : 176 ms QRS Dur : 078 ms QT Int : 405 ms P-R-T Axes : 051 -17 009 degrees QTc Int : 476 ms Poor data quality, interpretation may be adversely affected Normal sinus rhythm Abnormal ECG When compared with ECG of 28-DEC-2022 11:01, Sinus rhythm has replaced Atrial fibrillation Confirmed by Víctor Meneses ([id number]) on 12/29/2022 10:50:55 AM Referred By: REFERRED SELF Confirmed By:Franklyn Meneses
--- NOTE | 2022-12-29 17:46 | Hospitalist Progress Note ---
Date of Service December 29, 2022 Assessment & Plan (1) Paroxysmal atrial fibrillation: (2) Heart palpitations: (3) Chronic alcohol use: (4) T2DM (type 2 diabetes mellitus): (5) Hypertension: (6) Hypercholesteremia: Plan Plan 72-year-old male with PMH of new onset A-fib with RVR [diagnosed last admission], alcohol abuse [continues to use despite counseling in his last admission], HTN, HLD, T2DM presented to the ED 12/27 with complaint of A-fib with elevated heart rate and associated with shortness of breath, denies any chest pain or palpitation or nausea or vomiting or sweating. Patient reports he continues to drink after discharge last admission. He noted his heart rate to be elevated at 157 and possible A-fib in his mobile kathy and also noted that he had shortness of breath during the time, hence he presented to the ED for evaluation. He is being managed for the following: SOB Atrial Fibrillation: s/p lopressor iv and 10 mg diltiazem iv in ED w/ rate control transiently. [id number] 3 (age, HTN, T2DM), hep drip transitioned to eliquis per cardio. Monitor and replete electrolytes. Cardiology on board, sotalol started. Metorpolol dc'd. sinus rhythm Telemetry monitoring, daily EKG for QTc monitoring. QTc 476 Hx of Sinus tachycardia zio monitor in 2020 revealed sinus tachy and 6 brief episodes of svt Uses [employer] kathy (HR kathy) HTN BP stable continue HCTZ and losartan HLD continue Atorvastatin T2DM a1c 11/2022 6.1 hold metformin ACHS FSBS SSI Alcohol abuse 3 whiskey drinks daily, recently cut back from 6 Banana bag ordered daily thiamine, folic acid prn IV ativan for w/drawl 1 mg IV Q8 pt reports going to rehab/detox at end of month Disposition: PCP: Dr. Whyte Code Status: Full code VTE Prophylaxis: on eliquis Dispo-pending cardio clearance. Admission and Anticipated Discharge Date Admission Date: December 27, 2022 Subjective Patient seen and examined at bedside as a follow-up of atrial fibrillation with RVR and alcohol abuse. Patient was lying in bed, on room air, NAD, reports no chest pain, sinus rhythm, denies any headache or dizziness or belly pain or acute changes in his bowel or bladder habits. Reports eating okay/moving bowels ok. Physical Exam Physical Exam: GENERAL: Alert and oriented x3. NAD, on RA. HEENT: No pallor, no icterus. Pupils equal, round and reactive to light. Oral mucosa moist. NECK: No JVD, no neck masses. HEART: S1 and S2 heard. regular rate and rhythm. No murmur, no gallop. RESPIRATORY SYSTEM: Normal AP diameter. No accessory muscle use. No wheezing, no crackles. ABDOMEN: Soft, bowel sounds present, nontender, no distention. CENTRAL NERVOUS SYSTEM: No facial droop. Speech is clear. Obeys simple commands. Moves extremities. EXTREMITIES: No edema, no erythema seen. Results & Data Results & Data ([facility]) Vital Signs (Past 12 Hours) Vital Signs Temp Pulse Resp BP Pulse Ox O2 Del Method 12/29/22 15:41 36.4 C L 81 18 112/63 96 Room Air 12/29/22 11:41 36.7 C 79 20 112/79 95 Room Air 12/29/22 07:42 36.3 C L 71 18 111/67 94 Room Air
[2022-12-30] MEDS: GABAPENTIN 600 MG TAB PO SCH (00:47)
[2022-12-30 08:00] LABS: Calcium 9.7 mg/dl (8.5-10.1); Magnesium 1.9 mg/dl (1.7-2.4); Potassium 4.4 mmol/L (3.5-5.1)
[2022-12-30 08:06] LABS: BUN Creatinine Ratio 13.4 (10-20); Creatinine Clr Calc Pharmacy 98.2 ml/min; Est GFR (African American) 103.8 ml/min; Est GFR (Non-African American) 89.6 ml/min
[2022-12-30] MEDS: INSULIN ASPART PER UNIT SC SCH ×2 (08:55→13:41)
[2022-12-30] MEDS: THIAMINE HCL 100 MG in SYRINGE 9 ML IV SCH (09:10)
[2022-12-30] MEDS: FOLIC ACID 1 MG in SYRINGE 9.8 ML IV SCH (09:10)
[2022-12-30] MEDS: dilTIAZem HCL 30 MG TAB PO SCH (09:11)
[2022-12-30] MEDS: LOSARTAN POTASSIUM 50 MG TAB PO SCH (09:11)
[2022-12-30] MEDS: ATORVASTATIN 20 MG TAB PO SCH (09:11)
[2022-12-30] MEDS: APIXABAN 5 MG TABLET PO SCH (09:11)
[2022-12-30] MEDS: SOTALOL HCL 80 MG TAB PO SCH (09:11)
[2022-12-30] MEDS: CEROVITE ADV FORMULA TAB PO SCH (09:11)
[2022-12-30] MEDS: LANTUS PER UNIT CHARGE SQ SCH (09:41)
[2022-12-30] MEDS: hydroCHLOROthiazide 25 MG TAB PO SCH (10:18)
--- NOTE | 2022-12-30 12:08 | Cardiology Progress Note ---
Date of Service December 30, 2022 Assessment & Plan (1) Atrial fibrillation with RVR: (2) Alcohol abuse: Plan Reoccurrence of symptomatic paroxysmal A-fib with RVR, initially diagnosed at the beginning of December. Ongoing alcohol abuse, patient actively trying to cut back. [id number] score of 3 (age, HTN, DM). Over night experiencing PAF- converted to NSR at 0145, HRs 70-80s. 1. EKG today showed NSR, 83 bpm, QTc 505 ms. Will continue to monitor closely. Continue sotalol 80 mg twice daily. (Today the patient will receive dose 3 and 4). Metoprolol has since been discontinued. Continue diltiazem 30 mg twice daily. 2. Continue daily EKGs- ordered to assess QTc. Will plan on hospital stay approximally 3 days in length from initiation of sotalol therapy. 2. Continue Eliquis 5 mg twice daily. Again had a lengthy discussion regarding the fall and bleeding risk with anticoagulation. Encouraged alcohol cessation and rehab in January. 3. Trend BMP-replace potassium for goal of 4.0 and mag of 2.0. 12/30/22 QTc stable at 498 ms no afib overnight ok to d/c to home meds on discharge: eliquis 5mg po bid sotalol 80 mg bid diltiazem 30mg bid and current doses of HCTZ, losartan, atorvastatin my office will call to arrange f/u in 1 month Admission and Anticipated Discharge Date Admission Date: December 27, 2022 Subjective Patient seen and examined. Chart reviewed. Telemetry reviewed. States that he feels well. Review of Systems Review of Systems: All systems reviewed & are unremarkable except as noted in HPI & below Physical Exam Physical Exam: General: Awake, alert and oriented x 3. No acute distress. HEENT: Normocephalic, atraumatic. Pupils equal, round and reactive to light and accommodation. Extraocular muscles are intact. Anicteric sclera. Moist mucous membranes. Neck: No JVD. No bruit. Cardiovascular: Regular. Positive S-4. Normal S-1 and S-2. No S-3. No murmurs or rubs. Pulmonary: Clear to auscultation B/L. No rales, rhonchi or wheezing Abdomen: Bowel sounds x 4, soft. No rebound, guarding or tenderness. No organomegaly. Extremities: No clubbing, cyanosis or edema. +2 pedal pulses bilaterally. Skin: Warm and dry. Results & Data ([facility]) Vital Signs (Past 12 Hours) Vital Signs Temp Pulse Resp BP Pulse Ox O2 Del Method 12/30/22 07:57 36.4 C L 71 20 134/88 94 Room Air 12/30/22 03:02 36.9 C 66 18 104/55 L 96 Room Air
--- NOTE | 2022-12-30 12:44 | Electrocardiogram Report ---
Test Reason : Blood Pressure : / mmHG Vent. Rate : 069 BPM Atrial Rate : 069 BPM P-R Int : 176 ms QRS Dur : 080 ms QT Int : 420 ms P-R-T Axes : 034 -09 020 degrees QTc Int : 450 ms Normal sinus rhythm When compared with ECG of 29-DEC-2022 08:41, Criteria for Septal infarct are no longer Present Confirmed by Víctor Meneses ([id number]) on 12/30/2022 12:43:44 PM Referred By: REFERRED SELF Confirmed By:Franklyn Meneses
--- NOTE | 2022-12-30 13:58 | Discharge Summary ---
Date of Service December 30, 2022 Admission HPI Per Admitting Provider Mr. Nam is a 72 year old male that presented to the [facility] with palpitations. He was recently discharged where he was diagnosed with new onset AF with RVR. He has an extensive PMH that includes: HTN, HLD, Sinus tachycardia, T2DM, and alcohol abuse . Currently, patient lying in his hospital bed in no apparent distress. He complains of having a cough and cold over the past few days without lightheadedness. He denies any structural heart disease and no prior hx of PCI or stents. He takes a daily ASA, but no other anticoagulants due to increaed fall risk related to his alcohol use. Patient states that he has cut back on his alcohol use since his last admission, drinking 3 'small glasses' of whiskey liquor daily. He denies visual or auditory changes, chest pain, dizziness, lightheadedness, n/v/d, abd pain, change in bowel or urinary habits, recent falls or trauma, appetite changes. He is retired from working in the [employer] He has a positive FH of CAD with father who passed at 48 due to massive MT. Patient will be admitted for further evaluation and management. Please see A/P for further details. Admission Exam Per Admitting Provider Neuro: AAOx4, PERRLA, no aphagia, memory changes, CNII-XII grossly intact HEENT: head normocephalic, moist mucus membranes CV: S1/S2, (-) M/G/R, (-) edema, cap refill < 3 seconds Resp: Lungs CTA in all cristina. On RA GI: Abdomen S/NT/ND, Ax4 bowel sounds, (-) CVA tenderness Musculoskeletal: 5/5 B/L UE strength, 5/5 B/L LE strength. No gait disturbance Skin: (-) rashes , (-) erythema. Psych: euthymic mood Principal Diagnosis Paroxysmal A-fib Alcohol abuse Discharge Exam GENERAL: Alert and oriented x3. NAD, on RA. HEENT: No pallor, no icterus. Pupils equal, round and reactive to light. Oral mucosa moist. NECK: No JVD, no neck masses. HEART: S1 and S2 heard. regular rate and rhythm. No murmur, no gallop. RESPIRATORY SYSTEM: Normal AP diameter. No accessory muscle use. No wheezing, no crackles. ABDOMEN: Soft, bowel sounds present, nontender, no distention. CENTRAL NERVOUS SYSTEM: No facial droop. Speech is clear. Obeys simple commands. Moves extremities. EXTREMITIES: No edema, no erythema seen. Discharge Data Allergies Allergy/AdvReac Type Severity Reaction Status Date / Time No Known Allergies Allergy Verified 12/27/22 10:56 Consultations 12/27/22 12:10 Consult Cardiology Routine 12/27/22 12:12 ED Decision to Admit Stat Hospital Course (1) Paroxysmal atrial fibrillation: (2) Heart palpitations: (3) Chronic alcohol use: (4) T2DM (type 2 diabetes mellitus): (5) Hypertension: (6) Hypercholesteremia: Plan Plan 72-year-old male with PMH of new onset A-fib with RVR [diagnosed last admission], alcohol abuse [continues to use despite counseling in his last admission], HTN, HLD, T2DM presented to the ED 12/27 with complaint of A-fib with elevated heart rate and associated with shortness of breath, denies any chest pain or palpitation or nausea or vomiting or sweating. Patient reports he continues to drink after discharge last admission. He noted his heart rate to be elevated at 157 and possible A-fib in his mobile kathy and also noted that he had shortness of breath during the time, hence he presented to the ED for evaluation. He was managed for the following: SOB Atrial Fibrillation: s/p lopressor iv and 10 mg diltiazem iv in ED w/ rate control transiently. [id number] 3 (age, HTN, T2DM), hep drip transitioned to eliquis per cardio. Electrolytes WNL, patient hemodynamically stable. Cardiology on board, sotalol started. Metorpolol dc'd. Maintained sinus rhythm QTc monitoring done, 450 today. Discussed with cardiology, discharging on sotalol 80 Mg twice daily, discontinuing metoprolol, continuing other prior meds. Patient to follow-up with PCP and labs/EKG in a week time. Patient to follow-up with cardiology in a month time. Hx of Sinus tachycardia zio monitor in 2020 revealed sinus tachy and 6 brief episodes of svt [employer]ses [employer] kathy (HR kathy) HTN BP stable continue HCTZ and losartan HLD continue Atorvastatin T2DM a1c 11/2022 6.1 hold metformin ACHS FSBS SSI Alcohol abuse 3 whiskey drinks daily, recently cut back from 6 Banana bag ordered daily thiamine, folic acid Patient hemodynamically stable and no signs and symptoms of withdrawal. pt reports going to rehab/detox at end of month, encouraged multiple times. Disposition: PCP: Dr. Whyte Code Status: Full code VTE Prophylaxis: on eliquis Patient being discharged home with following instruction at the point of discharge: Follow-up with the primary care physician within a week time and likely you will need labs CBC/CMP/magnesium/phosphorus. You might also need EKG repeated in 1 week time to monitor for your QTc because you have been started on sotalol. You were evaluated by cardiology, you have been started on Eliquis 5 mg twice a day, sotalol 80 mg twice a day, and you will continue your prior doses of hydrochlorothiazide, losartan, Cardizem, atorvastatin. Your metoprolol has been discontinued. Follow-up with cardiology in 1 month time. Take your medications as prescribed. Home Health Attestation I certify that this patient is under my care and that I, or a physicians supply assistant working with me, had a face to-face encounter that meets the home health [id number] encounter requirements with this patient. The encounter with the patient was in whole, or in part, for the following medical condition, which is the primary reason for home health care (list medical condition): I certify that, based on my findings, the following services are medically necessary home health services: My clinical findings support the need for the above services because: Further, I certify that my clinical findings support that this patient is homebound (i.e. absences from home require considerable and taxing effort and are for medical reasons or tenriism services or infrequently or of short duration when for other reasons) because: Certification for Home Health Services: Based on the above findings, I certify that this patient is confined to the home and needs intermittent mcc care, physical therapy and/or speech therapy or continues to need occupational therapy. The patient is under my care, and I have initiated the establishment of the plan of care. This patient will be followed by a physician who will periodically review the plan of care. Total Time Total Time Spent Total Time Spent (In Minutes): 45 Discharge Plan Discharge Items Patient Disposition: Home - Self-Care Reason For Visit: PALPITATIONS Discharge Diagnosis: Paroxysmal A-fib Alcohol abuse Activity: Resume your previous activity Non-emergency contact: Primary Care Provider Call non-emergency contact if: you have any medication questions, your symptoms worsen and your temperature is above 101 Follow-up/Referrals: David Antonio DO [Motorcycle Repairer] - (Date & Time 01/01/2023 11:00 AM Provider David Antonio DO Department Cardiology, [facility] ) Dima Whyte MD [Primary Care Provider] - (Date & Time 01/04/2023 11:20 AM Provider Dima Whyte MD Department [facility] ) Diet: Heart Healthy and Low Sodium (2gm) Addtl Attending Provider Instructions: Follow-up with the primary care physician within a week time and likely you will need labs CBC/CMP/magnesium/phosphorus. You might also need EKG repeated in 1 week time to monitor for your QTc because you have been started on sotalol. You were evaluated by cardiology, you have been started on Eliquis 5 mg twice a day, sotalol 80 mg twice a day, and you will continue your prior doses of hydrochlorothiazide, losartan, Cardizem, atorvastatin. Your metoprolol has been discontinued. Follow-up with cardiology in 1 month time. Take your medications as prescribed. Pending Studies at Discharge: No Stand-Alone Forms: My [facility] [employer], Smoking Cessation Medications and DC Order Prescriptions: New Eliquis 5 mg tablet 5 mg PO BID Qty: 60 0RF sotalol 80 mg Tablet 80 mg PO BID Qty: 60 0RF gabapentin 600 mg Tablet 600 mg PO Q24H 1 Days Qty: 1 0RF Continued losartan 50 mg Tablet 50 mg PO QAM atorvastatin 20 mg Tablet 20 mg PO QAM hydrochlorothiazide 25 mg Tablet 25 mg PO QAM metformin 500 mg Tablet Extended Release 24 Hr 1,000 mg PO QAM Multivitamin 50 Plus Tablet 1 tab PO QAM amoxicillin 500 mg Capsule 2,000 mg PO DIRECTED PRN (Reason: PRIOR TO PROCEDURES) diltiazem HCl 30 mg Tablet 30 mg PO BID Qty: 90 0RF folic acid 1 mg Tablet 1 mg PO QAM 30 Days Qty: 30 0RF thiamine HCl (vitamin B1) 100 mg Tablet 100 mg PO QAM 30 Days Qty: 30 0RF aspirin 81 mg Tablet,Delayed Release (Dr/Ec) 81 mg PO QAM Qty: 30 0RF Discontinued metoprolol tartrate 50 mg Tablet 50 mg PO BID Qty: 60 0RF Discharge Orders: Discharge Order (Routine); Ordered 12/30/22 Ordered By: Stefania Hsu Admission Data Admit Date/Time: 12/27/22 12:10 Attending Provider: Stefania Hsu Admit Provider: Stefania Hsu Primary Care Provider: Dima Whyte Other Providers: Harrison Bello Rishikesh
[2022-12-31] MEDS ORDERED: GABAPENTIN 600 MG TAB PO SCH (00:15)
== END 2022-12-30 15:05 | disposition home or self-care (01) | DRG 310 ==
LOC: ED 09:19 → 2E 12:10